=== PATIENT | male | born 1960 | race Caucasian/White ===

== ENCOUNTER → 2019-07-15 13:53 | Outpatient (CLI) | payer MEDICARE, SELFPAY ==
--- NOTE | 2019-07-15 | CA_ITS ---
APPROVED REPORT Exam: Exercise Treadmill Technologist: Kelsey Willson Ht: 6 ft 7 in Wt: 215 lbs BSA: 2.35 m2 HR: 75 bpm BP: 141/91 mmHg Indications: Chest pain Stress Test Details Test: Randal HR Resting HR: 93 bpm Max Heart Rate (APMHR): 161 bpm Max HR Achieved: 163 bpm Target HR (85% APMHR): 136 bpm % of APMHR: 101 Recovery HR: 104 bpm BP Resting BP: 141.0/91.0 mmHg Max BP: 190.0/98.0 mmHg Recovery BP: 150.0/90.0 mmHg ECG Clinical Exercise duration: 06:14 min Highest Stage Achieved: Exercise capacity: 7.0 METs Stress ECG Conclusion Resting ECG: Sinus rhythm Randal protocol completed. Patient exercised 06:14. Test stopped due to shortness of breath. Symptoms: Shortness of breath at peak exercise. Resolved in recovery. No chest pain. Arrhythmias/Ectopy: Occasional PVC. ST-T Changes: Less than 1.[address] depression. Conclusion: GXT only. Shortness of breath at peak exercise. Less than 1.[address] depression. Normal exercise treadmill stress test Electronically signed by : Felipe Meier, 07/15/2019 20:15:55
== END ==
PROVIDERS: PCP Family Medicine; Visit Provider Family Medicine
DX: R07.9 Chest pain, unspecified (principal)
CPT/HCPCS: 93017

== ENCOUNTER 2019-09-02 21:30 | Observation (INO) | payer MEDICARE, SELFPAY ==
--- NOTE | 2019-09-02 21:27 | ECG_ITS ---
APPROVED REPORT Exam: Resting ECG HR:66 bpm ECG Measurements Heart Rate 66 AXES PA 140 P 61 QRSd 102 QRS 30 QT 382 T 53 QTc 400 <Conclusion> Normal sinus rhythm Normal ECG Electronically signed by : Rolando Gould, 09/03/2019 14:04:29
[2019-09-02 21:31] VITALS: BP 158/98; PULSE 66; RESP 16; TEMP 36.4; O2SAT 97; BMI 23.6
--- NOTE | 2019-09-02 21:38 | XR_ITS ---
PROCEDURE: XR CHEST 2V CLINICAL HISTORY: chest pain COMPARISON: ABDPELW/WO CT ABD PELVIS W/WO CONTRAST from 09/10/2013 XR CHEST PORTABLE from 07/03/2019 FINDINGS: The cardiomediastinal silhouette and pulmonary vascularity are within normal limits. Hyperinflation with attenuation of the peripheral pulmonary vessels suggesting COPD. There are atelectatic or fibrotic changes in the right suprahilar region. Degenerative changes thoracic spine IMPRESSION: Possible COPD otherwise negative Dictated by: Bruce Pfeiffer MD 09/03/2019 08:34 Electronically signed by Bruce Pfeiffer MD in [place] 09/03/2019 08:34
[2019-09-02 21:55] LABS: Basophils % 0.8 % (0.1-2.0); Eosinophils # 0.3 K/mm3 (0.0-0.4); Eosinophils % 5.5 % (0.1-12.0); Hematocrit 44.3 % (42.0-52.0); Hemoglobin 14.1 g/dL (14.1-18.0); Lymphocytes # 1.2 K/mm3 (0.7-4.5); Lymphocytes % 23.1 % (10-50); Mean Corpuscular HGB Conc 31.9 g/dL (31.8-35.4); Mean Corpuscular Hemoglobin 29.5 pg (27.0-31.2); Mean Corpuscular Volume 92.5 fl (80-94); Mean Platelet Volume 7.1 fl (7.4-10.4); Monocytes # 0.4 K/mm3 (0.1-1.0); Monocytes % 7.2 % (1.7-9.3); Neutrophils # 3.2 K/mm3 (1.8-7.8); Neutrophils % 63.3 % (37.0-80.0); Platelet Count 292 K/mm3 (142-424); Red Blood Count 4.79 M/mm3 (4.60-6.20); Red Cell Distribution Width 12.9 % (11.5-17.5)
[2019-09-02 21:58] LABS: Chloride 102 mmol/L (98-107); Sodium 138 mmol/L (136-145)
[2019-09-02 22:01] LABS: Blood Urea Nitrogen 21 mg/dl (9-20); Creatinine Clearance Estimated 107 mL/min (50-200); Estimated Glomerular Filt Rate 76 ml/min (>60); GFR (African American) 93 ML/MIN (>60)
--- NOTE | 2019-09-02 22:01 | HMH.EDCP ---
ED Disposition Clinical Impression: Chest pain Qualifiers: Chest pain type: precordial pain Qualified Code(s): R07.2 - Precordial pain Disposition: Home, Self-Care Condition on Discharge: Good Referrals: Provider,Referral, [Primary Care Provider] - - Critical Care Critical Care Time: No Attestation: On 09/02/19, the high probability of a clinically significant, sudden or life threatening deterioration of the following system(s) required my full and direct attention, intervention and personal management. The time I documented below is in addition to time spent performing reported procedures but includes the following listed in this critical care notation. Medical Decision Making - Medical Records Medical records reviewed: Yes: I reviewed the patient's medical records. - [place] Inquiry Pt receiving controlled substance: No Vital Signs: 09/02/19 21:31 09/02/19 22:36 Temperature 97.6 F Temperature Source Oral Pulse Rate [Right Brachial] 66 56 L Respiratory Rate 16 18 Blood Pressure [Right Arm] 158/98 H 142/56 H Blood Pressure Mean [Right Arm] 118 84 Blood Pressure Source [Right Arm] Automatic Cuff Blood Pressure Position [Right Arm] Sitting 02 Sat by Pulse Oximetry 97 97 Oxygen Delivery Method Room Air Room Air - Lab Data Lab results reviewed: Yes: I reviewed the patient's lab results. Lab Results 09/02/19 21:45: WBC 5.0, RBC 4.79, Hgb 14.1, Hct 44.3, MCV 92.5, MCH 29.5, MCHC 31.9, RDW 12.9, Plt Count 292, MPV 7.1 L, Neut % (Auto) 63.3, Lymph % (Auto) 23.1, [place] % (Auto) 7.2, Eos % (Auto) 5.5, Baso % (Auto) 0.8, Neut # (Auto) 3.2, Lymph # (Auto) 1.2, [place] # (Auto) 0.4, Eos # (Auto) 0.3, Baso # (Auto) 0.0 09/02/19 21:45: Sodium 138, Potassium 4.0, Chloride 102, Carbon Dioxide 29, Anion Gap 11.0, BUN 21 H, Creatinine 1.00, Estimated Creat Clear 107, Estimated GFR 76, Est GFR ( Amer) 93, Glucose 103 H, Calcium 9.7, Troponin I < 0.01 09/02/19 21:45: Plasma/Serum Alcohol < 10 Result diagrams: 09/02/19 21:45 09/02/19 21:45 Orders (Tests/Meds): ED MEDICATIONS Discontinued Medications Generic Name Dose Route Start Last Admin Trade Name Freeman PRN Reason Stop Dose Admin Nitroglycerin 1 gm 09/02/19 22:41 Nitroglycerin 1 Inch Oint Udp TD 09/02/19 22:42 ONCE ONE ORDERS Category Date Time Status XR chest 2V Stat Exams 09/02/19 21:38 Taken Troponin I Q3H Lab 09/03/19 00:45 Ordered Troponin I Q3H Lab 09/03/19 03:45 Ordered - Radiology Data #1 Image(s): Chest Image Reviewed: Yes I reviewed the patient's radiology image Preliminary Findings: Normal/NAD - ECG Data Tracing #1 Normal Sinus Rhythm: Yes Ischemic changes: non-specific ST-T wave changes - Physician Consults Physician Consulted: jenny Reason -: Admission Chest Pain HPI - General Chief Complaint: Chest Pain Stated Complaint: Chest pain Time Seen by Provider: 09/02/19 21:40 Mode of Arrival: EMS Source of Information: Patient, EMS, Medical Record Limitations: No Limitations Description of Symptoms (Recalled from ER Triage Doc. by RN): Patient brought in by EMS with report of chest pain and SOB. Patient says he hit him all of the sudden around 1700 tonight and called EMS. Patient has one nitro and 4 aspirin in route. Patient is pain free on arrival at our facility. - History of Present Illness HPI narrative: acute onset of chest pain while at rest - and was relieved by ntg per ems - pt with prev gxt which was neg MD complaint: chest pain indicative of cardiac Onset (ago): hour(s) Duration: now resolved Activity at onset: during rest Pain location: left chest Severity: moderate Quality: sharp Relieving factors: nitroglycerin Risk Factors for CAD: Hypertension, Hypercholesterolemia, Family Hx of CAD, Smoking Treatments prior to or on arrival for Cardiac Chest Pain: none - IDALIA Score for Non-Stemi Age of Patient: 50-59 years old Heart Rate: 50-69 bpm Systolic Blood Pressure: 1
[2019-09-02 22:02] LABS: Calcium 9.7 mg/dl (8.4-10.2); Carbon Dioxide 29 mmol/L (22.0-30.0); Glucose 103 mg/dl (74-100)
[2019-09-02 22:07] LABS: Ethyl Alcohol < 10 mg/dl (0-10)
[2019-09-02 22:25] LABS: Troponin I < 0.01 ng/ml (0.00-0.034)
[2019-09-02 22:36] VITALS: BP 142/56; PULSE 56; RESP 18; O2SAT 97
--- NOTE | 2019-09-02 22:41 | PC.NURSE ---
spoke with dr alvarado who wants to admit pt
--- NOTE | 2019-09-02 22:47 | PC.NURSE ---
Updated Dano, patient uncle about patient being admitted.
[2019-09-02 22:51] VITALS: BMI 26.2
[2019-09-02 23:11] VITALS: BP 138/105; PULSE 80; RESP 17; TEMP 36.4; O2SAT 97
--- NOTE | 2019-09-02 23:23 | PC.NURSE ---
pt arrived to floor via wheelchair from ED
[2019-09-02 23:30] VITALS: O2SAT 97
--- NOTE | 2019-09-02 23:45 | PC.NURSE ---
Lawson Sanchez, Student Nurse, will be providing care to pt under my supervision.
[2019-09-02 23:50] VITALS: BP 166/89; PULSE 65; RESP 18; TEMP 36.7; O2SAT 99
[2019-09-03 00:42] VITALS: PULSE 60
--- NOTE | 2019-09-03 00:57 | PC.NURSE ---
Education provided to pt on POC, NPO status, Medications, Medicare OBS. Pt states family may possible be able to bring medications in AM. Pt spoke of Dano Huynh. Pt States he does not know the names of medications that he is on. Pt took shower before bed. NPO for cardiac consult in AM. Denies any pain or discomfort at this time. VSS. WIll continue to monitor.
[2019-09-03 01:09] LABS: Troponin I < 0.01 ng/ml (0.00-0.034)
[2019-09-03 04:00] VITALS: BP 130/71; PULSE 50; PULSE 55; RESP 18; TEMP 36.6; O2SAT 98
[2019-09-03 04:51] LABS: Troponin I < 0.01 ng/ml (0.00-0.034)
[2019-09-03 05:31] LABS: Basophils % 0.6 % (0.1-2.0); Eosinophils # 0.2 K/mm3 (0.0-0.4); Eosinophils % 2.9 % (0.1-12.0); Hematocrit 42.8 % (42.0-52.0); Hemoglobin 13.8 g/dL (14.1-18.0); Lymphocytes # 1.1 K/mm3 (0.7-4.5); Lymphocytes % 19.6 % (10-50); Mean Corpuscular HGB Conc 32.1 g/dL (31.8-35.4); Mean Corpuscular Hemoglobin 29.8 pg (27.0-31.2); Mean Corpuscular Volume 92.6 fl (80-94); Mean Platelet Volume 7.4 fl (7.4-10.4); Monocytes # 0.3 K/mm3 (0.1-1.0); Monocytes % 5.6 % (1.7-9.3); Neutrophils # 4.1 K/mm3 (1.8-7.8); Neutrophils % 71.3 % (37.0-80.0); Platelet Count 277 K/mm3 (142-424); Red Blood Count 4.63 M/mm3 (4.60-6.20); Red Cell Distribution Width 13.1 % (11.5-17.5); White Blood Count 5.8 K/mm3 (4.8-10.8)
--- NOTE | 2019-09-03 05:41 | PC.NURSE ---
PATIENT HAS NOT DISPLAYED ANY SIGNIFICANT CHANGES SINCE ADMISSION, VSS, PT REMAINS NPO, HAS SHOWERED, AND CHANGED CLOTHES IN PREPARATION FOR CARDIAC CONSULT, PT AMBULATES INDEPENDENTLY TO RR, NO C/O PAIN, SOB, DISTRESS WHEN AMBULATING, PATIENT HAD TROPONIN*2 WNL, TELE NSR,
[2019-09-03 05:42] LABS: Anion Gap 12.9 mEq/L (5-15); Blood Urea Nitrogen 19 mg/dl (9-20); Calcium 9.8 mg/dl (8.4-10.2); Carbon Dioxide 25 mmol/L (22.0-30.0); Chloride 103 mmol/L (98-107); Chol/HDL Ratio 3.5 (1-3.5); Cholesterol 155 mg/dl (140-200); Creatinine Clearance Estimated 132 mL/min (50-200); Estimated Glomerular Filt Rate 86 ml/min (>60); GFR (African American) 105 ML/MIN (>60); Glucose 103 mg/dl (74-100); HDL Cholesterol 44 mg/dl (40-60); Magnesium 1.7 mg/dl (1.6-2.3); Potassium 3.9 mmoL/L (3.5-5.1); Sodium 137 mmol/L (136-145); Triglycerides 97 mg/dl (30-150); VLDL Cholesterol 19 mg/dL (0-40)
[2019-09-03 05:45] LABS: Direct LDL Cholesterol 84.12 mg/dL (100-129)
--- NOTE | 2019-09-03 07:24 | P.CONPHA_ITS ---
[facility] Pharmacy VTE Monitoring - Patient Demographics Admission date: 09/02/19 Report Date: 09/03/19 Time: 07:24 Allergies/Adverse Reactions: Patient Allergies No Known Allergies Allergy (Verified 09/02/19 21:40) Height: 2.01 m Weight: 105.687 kg Patient Problems: Current Active Problems Chest pain (Acute) - VTE Risk Labs: VTE Related Lab Results Hgb 13.8 g/dL (14.1-18.0) L 09/03/19 03:55 Hct 42.8 % (42.0-52.0) 09/03/19 03:55 Plt Count 277 K/mm3 (142-424) 09/03/19 03:55 BUN 19 mg/dl (9-20) 09/03/19 03:55 Creatinine 0.90 mg/dl (0.66-1.25) 09/03/19 03:55 Estimated Creat Clear 132 mL/min (50-200) 09/03/19 03:55 Was VTE Risk Assessment Performed: No VTE Score: 1 VTE Risk Level: Low Risk - Prophylaxis VTE Prophylaxis Ordered?: Yes Types of VTE Prophylaxis: TEDS Knee High Location of Applied Device: Bilateral Lower Extremeties - VTE Diagnosis Confirmed Treatment or plan recommended: Continue Current Treatment
[2019-09-03 08:00] VITALS: BP 151/91; PULSE 69; RESP 18; TEMP 36.5; O2SAT 98
--- NOTE | 2019-09-03 08:00 | CA_ITS ---
APPROVED REPORT EXAM: Comprehensive 2D, Doppler, and color-flow Echocardiogram Supervisor Nuclear Medicine: Nevin Hoffman CRT Ht: 6 ft 7 in Wt: 210lbs BSA: 2.33 BP: 142/56 mmHg Indications: Chest Pain, Shortness of Breath, Hyperlipidemia, Hypertension/HDD, smoker 2D Dimensions LVOT 2.02 cm (M/F) 1.5-2.5 M-Mode Dimensions RVDd 3.39 cm (0.9-2.6) LVDd 6.04 cm (3.5-5.7) LVDs 3.64 cm (3.5-5.7) IVSd 1.29 cm (0.6-1.1) PWd 0.96 cm (0.6-1.1) EF (Teich) 69.40% FS 39.70% EDV (Teich) 182.80 mL ESV (Teich) 55.90 mL LV Diastology E/A Ratio 1.10 Mitral Valve MV A Velocity 54.00 (40-130 cm/s) Left Ventricle Left atrium is mildly enlarged, left ventricle is normal size, mild concentric left ventricular hypertrophy, visually estimated ejection fraction 55% with no regional wall motion abnormality, grade 1 diastolic dysfunction seen without tissue Doppler evidence of raise left atrial pressure. Right Ventricle Right atrium is mildly enlarged, right ventricle is mildly dilated with normal contractility. Aortic Valve Aortic valve is minimally thickened and fibrosed, there is no aortic stenosis or aortic insufficiency. Mitral Valve Mitral valve leaflets are minimally thickened, there is mild mitral regurgitation. Tricuspid Valve Tricuspid valve is grossly normal, there is mild tricuspid regurgitation, tricuspid regurgitation jet velocity is inadequate for calculation of the right ventricular systolic pressure. Pulmonic Valve Pulmonic valve is poorly visualized. Great Vessels Aortic root is normal size. Pericardium No significant pericardial effusion noted. Conclusion 1. Mild biatrial enlargement, normal left ventricular size, mild concentric left ventricular hypertrophy, visually estimated ejection fraction 55% with no regional wall motion abnormality, grade 1 diastolic dysfunction seen without tissue Doppler evidence of raise left atrial pressure. 2. Mildly enlarged right ventricle with normal contractility. 3. Mild mitral and tricuspid regurgitation. 4. No significant pericardial effusion noted. Electronically signed by : Felipe Meier, 09/03/2019 17:26:39
--- NOTE | 2019-09-03 08:02 | HMH.CNCARD ---
History of Present Illness Consult date: 09/03/19 Requesting physician: Lawson Samuels Consult reason: chest pain Chief complaint: chest pain Additional Medical History:: 1. Hypertension 2. Hyperlipidemia 3. Arthritis 4. Mental deficit, mild 5. Remote history of abnormal stress test in 2010. Unsure if patient had a further work-up. A. Normal exercise stress test 06/2019 without nuclear imaging History of present illness: 59-year-old white male with long set of chest discomfort described as substernal without radiation with some mild shortness of breath while at rest last evening. Patient contacted EMS for transportation to the hospital for further evaluation. In route he was given baby aspirin and 1 sublingual nitroglycerin with subsequent resolution of symptoms by the time he got to the ER. His EKG is sinus rhythm and unremarkable. His troponins have returned normal overnight. Patient was noted to be hypertensive on admission. Patient has remained symptom-free overnight and is anxious to be discharged home. Preliminary echocardiogram this morning shows ejection fraction greater than 55% with some evidence of moderate mitral regurgitation. [facility] History Medical History: Denies:: Cancer, Diabetes Mellitus Type 1, Diabetes Mellitus Type 2, Internal Pacemaker, MRSA *Have you ever received a pneumonia vaccine?: No *Have you received a flu vaccine this season?: No Other Medical History: Reports: Arthritis, Sinus Problems Other Surgeries: No: Pacemaker Amputation: No Fractures: Yes (RIGHT ANKLE) - *Social History Educational Level: Completed High School Smoking Status: Former smoker Tobacco Type: cigarettes # Packs/Day (cigarettes): 2 #Yrs smoked (if former smoker): 12 Alcohol Intake: current Alcohol Intake Frequency:: holidays/special occasions only *Occupational Status:: employed Housing: house Household Members: significant other, friend(s) *Travel in the last 8 weeks: None Family Hx:: Heart Attack Meds Home Medications Medication Instructions Recorded Confirmed Type Benazepril/Hydrochlorothiazide 1 each PO DAILY 09/02/19 09/02/19 History [Benazepril-Hctz 20-12.5 mg Tab] Omeprazole 20 mg PO DAILY 09/02/19 09/02/19 History Sertraline HCl [Zoloft] 100 mg PO DAILY 09/02/19 09/02/19 History Simvastatin 40 mg PO HS 09/02/19 09/03/19 History Sulindac 200 mg PO BID 09/02/19 09/02/19 History clonazePAM [Clonazepam] 0.5 mg PO TID 09/02/19 09/02/19 History Fluticasone Propionate [Flonase 1 spray NS DAILY 09/03/19 09/03/19 History Allergy Relief NS] Allergies Allergy/AdvReac Type Severity Reaction Status Date / Time No Known Allergies Allergy Verified 09/02/19 21:40 Review of Systems - Review of Systems Review of systems:: pertinent systems reviewed and negative unless documented below - *Cardiovascular Reports chest pain, Denies shortness of breath with activity - *Respiratory Denies cough, Denies shortness of breath with activity - *Gastrointestinal Denies heartburn, Denies nausea, Denies vomiting - *Genitourinary Denies blood in urine - *Musculoskeletal Reports joint pain - *Neurologic Denies abnormal hearing, Denies localized weakness, Denies seizure-like activity Exam Vital signs and Labs for Last 24 Hours: Temp Pulse Resp BP Pulse Ox 97.9 F 55 L 18 130/71 98 09/03/19 04:00 09/03/19 04:00 09/03/19 04:00 09/03/19 04:00 09/03/19 04:00 Laboratory Results - last 24 hr 09/02/19 21:45: WBC 5.0, RBC 4.79, Hgb 14.1, Hct 44.3, MCV 92.5, MCH 29.5, MCHC 31.9, RDW 12.9, Plt Count 292, MPV 7.1 L, Neut % (Auto) 63.3, Lymph % (Auto) 23.1, [place] % (Auto) 7.2, Eos % (Auto) 5.5, Baso % (Auto) 0.8, Neut # (Auto) 3.2, Lymph # (Auto) 1.2, [place] # (Auto) 0.4, Eos # (Auto) 0.3, Baso # (Auto) 0.0 09/02/19 21:45: Sodium 138, Potassium 4.0, Chloride 102, Carbon Dioxide 29, Anion Gap 11.0, BUN 21 H, Creatinine 1.00, Estimated Creat Clear 107, Estimated GFR 76, Est GFR ( Amer) 93
--- NOTE | 2019-09-03 08:40 | HMH.PHAINT ---
MEDICATION RECONCILIATION COMPLETED ON PATIENT USING EXTERNAL FILL HISTORY FROM PHARMACY AND LIST FROM [facility] OFFICE. -SOCORRO COOKD
[2019-09-03 09:44] VITALS: PULSE 69; RESP 18; O2SAT 98
--- NOTE | 2019-09-03 09:45 | HMH.HPDC ---
General - General Admission date:: 09/02/19 Discharge date: 09/03/19 *Admission Date: 09/02/19 *Chief complaint: Chest pain *History of present illness: Mr Huynh is a 59-year-old white male with a history of hypertension, hyperlipidemia, and cognitive deficits who began having left anterior severe chest pain last p.m. at rest. The pain was without radiation and with some mild shortness of breath. Patient contacted EMS who transported him to the hospital for further evaluation. In route he was given aspirin and was sublingual nitroglycerin with resolution of symptoms by the time he got to the emergency room. With evaluation in the emergency room EKG revealed a sinus rhythm and was unremarkable. Troponins were negative. He was hypertensive on admission. He was admitted for further evaluation and treatment with a cardiology consult. This a.m. at time of exam patient remains pain-free. He denies shortness of breath. He is hungry and would like breakfast. He has had his echocardiogram. His troponins have returned normal overnight. Patient was noted to be hypertensive on admission. Patient has remained symptom-free overnight and is anxious to be discharged home. Preliminary echocardiogram this morning shows ejection fraction greater than 55% with some evidence of moderate mitral regurgitation. [facility] History Medical History: Reports:: Gastroesophageal Reflux Disease(GERD) Denies:: Cancer, Diabetes Mellitus Type 1, Diabetes Mellitus Type 2, Internal Pacemaker, Lung Disease, MRSA *Have you ever received a pneumonia vaccine?: No *Have you received a flu vaccine this season?: No Other Medical History: Reports: Arthritis, Sinus Problems Comment:: Mild cognitive deficit Other Surgeries: No: Pacemaker Amputation: No Fractures: Yes (RIGHT ANKLE) - *Social History Educational Level: Completed High School Smoking Status: Former smoker Tobacco Type: cigarettes # Packs/Day (cigarettes): 2 #Yrs smoked (if former smoker): 12 Alcohol Intake: current Alcohol Intake Frequency:: holidays/special occasions only *Occupational Status:: employed Housing: house Household Members: significant other, friend(s) *Travel in the last 8 weeks: None Family Hx:: Heart Attack Review of Systems - Constitutional Denies chills, Denies headache(s), Denies weakness - Eyes Denies change in vision - ENT Denies ear pain, Denies sinus pain, Denies sore throat, Denies dizziness - *Cardiovascular Reports chest pain, Reports chest pain at rest, Denies shortness of breath, Denies irregular heart rhythm, Denies leg swelling, Denies rapid, pounding, or irregular heartbeat, Denies radiating jaw, neck or arm pain - *Respiratory Reports shortness of breath (Slight), Denies chest congestion, Denies cough - *Gastrointestinal Denies abdominal pain, Denies constipation, Denies nausea, Denies vomiting - *Genitourinary Denies difficulty urinating - *Musculoskeletal Reports joint pain (All joints hurt at times) - *Neurologic Denies abnormal hearing, Denies abnormal speech, Denies confusion, Denies localized weakness, Denies seizure-like activity Comments: Some memory deficit Exam Vital signs and Labs for Last 24 Hours: Temp Pulse Resp BP Pulse Ox 97.7 F 69 18 151/91 H 98 09/03/19 08:00 09/03/19 08:00 09/03/19 08:00 09/03/19 08:00 09/03/19 08:00 Laboratory Results - last 24 hr 09/02/19 21:45: WBC 5.0, RBC 4.79, Hgb 14.1, Hct 44.3, MCV 92.5, MCH 29.5, MCHC 31.9, RDW 12.9, Plt Count 292, MPV 7.1 L, Neut % (Auto) 63.3, Lymph % (Auto) 23.1, [place] % (Auto) 7.2, Eos % (Auto) 5.5, Baso % (Auto) 0.8, Neut # (Auto) 3.2, Lymph # (Auto) 1.2, [place] # (Auto) 0.4, Eos # (Auto) 0.3, Baso # (Auto) 0.0 09/02/19 21:45: Sodium 138, Potassium 4.0, Chloride 102, Carbon Dioxide 29, Anion Gap 11.0, BUN 21 H, Creatinine 1.00, Estimated Creat Clear 107, Estimated GFR 76, Est GFR ( Amer) 93, Glucose 103 H, Calcium 9.7, Troponin I < 0.01 09/02/19 21:45: Plasm
[2019-09-03 12:00] VITALS: BP 132/75; PULSE 94; RESP 20; TEMP 37.1; O2SAT 93
--- NOTE | 2019-09-03 13:17 | HMH.PHAINT ---
DISCHARGE COUNSELING COMPLETE. SPOKE WITH THE PATIENT ABOUT THE ADDITION OF AMLODIPINE, INCREASE ON OMEPRAZOLE FROM QD TO BID, AND THE STOPPAGE OF THE SULINDAC. PATIENT ENDORSED NO QUESTIONS AT THIS TIME.
== END 2019-09-03 16:54 | disposition home or self-care (01) ==
LOC: ER 21:53 → 2ND 22:51
PROVIDERS: Admitting Provider Family Medicine; Emergency Provider Emergency Medicine; Visit Provider Family Medicine
DX: R07.2 Precordial pain (principal); I10 Essential (primary) hypertension; E78.5 Hyperlipidemia, unspecified; Z72.0 Tobacco use; Z82.49 Family history of ischemic heart disease and other diseases of the circulatory system; Z79.899 Other long term (current) drug therapy; Z72.89 Other problems related to lifestyle; K21.9 Gastro-esophageal reflux disease without esophagitis; M19.90 Unspecified osteoarthritis, unspecified site; Z87.891 Personal history of nicotine dependence
CPT/HCPCS: 36415; 71046; 80048; 80061; 83735; 84484; 85025; 93005; 93306; 99284; G0378

== ENCOUNTER 2021-04-05 10:24 | Emergency (ER) | payer MEDICARE, SELFPAY ==
[2021-04-05 10:25] VITALS: BP 161/93; PULSE 104; RESP 18; TEMP 36.7; O2SAT 95; BMI 28.1
--- NOTE | 2021-04-05 10:27 | CT_ITS ---
PROCEDURE: CT THORACIC SPINE WO CON CLINICAL HISTORY: trauma COMPARISON: No exams were available for comparison TECHNIQUE: Axial images obtained with sagittal and coronal reformats. All CT scans at the facility use one or more dose reduction, viz: automated exposure control, ma/kV adjustment per patient size (including targeted exams where dose is matched to indication, i.e. head), or iterative reconstruction technique. FINDINGS: Normal alignment. No acute fracture or dislocation. There is multilevel thoracic spondylosis with anterior osteophytes. No obvious paraspinal hematoma IMPRESSION: No acute finding Dictated by: Bruce Pfeiffer MD 04/05/2021 11:33 Bruce Pfeiffer MD in [place] 04/05/2021 11:33
--- NOTE | 2021-04-05 10:27 | CT_ITS ---
PROCEDURE: CT CERVICAL SPINE WO CON CLINICAL INDICATION: trauma COMPARISON: No exams were available for comparison TECHNIQUE: Axial images obtained with sagittal and coronal reformats. All CT scans at the facility use one or more dose reduction, viz: automated exposure control, ma/kV adjustment per patient size (including targeted exams where dose is matched to indication, i.e. head), or iterative reconstruction technique. Axial spiral CT scanning performed of the cervical spine beginning at the base of the skull and continuing to the upper T-spine. 3-D multiplanar reconstruction with 3-D manipulation of volumetric data set in image rendering was completed by the radiologist and/or technologist with the supervision of the radiologist on independent workstation. FINDINGS: There is straightening of the cervical lordosis. No acute fracture or dislocation is evident. No lytic or blastic change. Multilevel cervical spondylosis is present with facet and uncovertebral hypertrophy. C2-C3: Left-sided foraminal narrowing from facet hypertrophy. C3-C4: Degenerative disc disease with endplate hypertrophic change and severe right-sided foraminal narrowing from uncovertebral and endplate osteophytes. C4-C5: Degenerative disc disease with small broad-based disc osteophyte complex centrally and bilateral foraminal narrowing. C5-C6: Severe bilateral foraminal narrowing from endplate and uncovertebral hypertrophy with canal stenosis. C6-C7: Severe bilateral foraminal narrowing from endplate and uncovertebral hypertrophy with borderline canal stenosis. C7-T1: Unremarkable. Lung apices are clear. There are few scattered small cervical lymph nodes. IMPRESSION: 1. No acute fracture. 2. Multilevel cervical spondylosis with severe foraminal narrowing and canal stenosis. Please see above for detailed description at each level. 3. Slight reversal cervical lordosis which could be due to patient positioning or muscle spasm Dictated by: Bruce Pfeiffer MD 04/05/2021 11:29 Bruce Pfeiffer MD in [facility] 04/05/2021 11:29
--- NOTE | 2021-04-05 10:27 | XR_ITS ---
PROCEDURE: XR HAND LT MIN 3V CLINICAL INDICATION: trauma COMPARISON: No exams were available for comparison FINDINGS: No acute fracture or dislocation. Extra ossicles are present at the ulnar styloid process region and could be related to old injury. IMPRESSION: No acute findings. Dictated by: Bruce Pfeiffer MD 04/05/2021 11:23 Bruce Pfeiffer MD in [facility] 04/05/2021 11:23
--- NOTE | 2021-04-05 10:27 | CT_ITS ---
PROCEDURE: CT HEAD/BRAIN WO CON CLINICAL INDICATION: trauma COMPARISON: No exams were available for comparison TECHNIQUE: Axial images obtained. All CT scans at the facility use one or more dose reduction, viz: automated exposure control, ma/kV adjustment per patient size (including targeted exams where dose is matched to indication, i.e. head), or iterative reconstruction technique. FINDINGS: No midline shift, mass effect, intracranial hemorrhage, hydrocephalus, or extra-axial fluid collection is evident. Mild soft tissue swelling of the scalp at the vertex region on the left. The calvarium has an unremarkable appearance. No mastoid effusion. No sinus air-fluid level. IMPRESSION: No acute intracranial finding Dictated by: Bruce Pfeiffer MD 04/05/2021 11:25 Bruce Pfeiffer MD in [facility] 04/05/2021 11:25
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
[2021-04-05 12:20] VITALS: BP 153/99; PULSE 82; RESP 18; TEMP 36.7; O2SAT 94
== END 2021-04-05 12:21 | disposition home or self-care (01) ==
PROVIDERS: Emergency Provider Emergency Medicine; PCP Family Medicine
DX: S01.01XA Laceration without foreign body of scalp, initial encounter (principal); W22.8XXA Striking against or struck by other objects, initial encounter; Y92.89 Other specified places as the place of occurrence of the external cause; K21.9 Gastro-esophageal reflux disease without esophagitis; Z87.891 Personal history of nicotine dependence
CPT/HCPCS: 12002; 70450; 72125; 72128; 73130; 99282

== ENCOUNTER → 2021-05-05 11:05 | Outpatient (CLI) | payer MEDICARE, SELFPAY ==
[2021-05-05 11:33] LABS: Adenovirus,PCR Not Detected (NotDetected); Bordetella Pertussis Not Detected (NotDetected); Chlamydophila Pneumoniae, PCR Not Detected (NotDetected); Coronavirus 19, PCR Not Detected (NotDetected); Coronavirus 229E Not Detected (NotDetected); Coronavirus NL63 Not Detected (NotDetected); Coronavirus OC43 Not Detected (NotDetected); Coronovirus HKU1,PCR Not Detected (NotDetected); Human Metapneumovirus Not Detected (NotDetected); Influenza A, PCR Not Detected (NotDetected); Influenza AH1, 2009 Not Detected (NotDetected); Influenza AH1, PCR Not Detected (NotDetected); Influenza AH3,PCR Not Detected (NotDetected); Influenza B, PCR Not Detected (NotDetected); Mycoplasma Pneumoniae, PCR Not Detected (NotDetected); Parainfluenza 1, PCR Not Detected (NotDetected); Parainfluenza 2, PCR Not Detected (NotDetected); Parainfluenza 3, PCR Not Detected (NotDetected); Parainfluenza 4, PCR Not Detected (NotDetected); Respiratory Syncytial Virus Not Detected (NotDetected); Rhinovirus/Enterovirus Not Detected (NotDetected)
[2021-05-05 12:22] LABS: Basophils % 0.4 % (0.1-2.0); Eosinophils # 0.1 K/mm3 (0.0-0.4); Eosinophils % 1.7 % (0.1-12.0); Hematocrit 43.2 % (42.0-52.0); Hemoglobin 14.7 g/dL (14.1-18.0); Lymphocytes # 0.5 K/mm3 (0.7-4.5); Lymphocytes % 10.3 % (10-50); Mean Corpuscular Hemoglobin 30.6 pg (27.0-31.2); Mean Platelet Volume 7.6 fl (7.4-10.4); Monocytes # 0.3 K/mm3 (0.1-1.0); Monocytes % 6.4 % (1.7-9.3); Neutrophils # 4.2 K/mm3 (1.8-7.8); Neutrophils % 81.3 % (37.0-80.0); Platelet Count 290 K/mm3 (142-424); Red Cell Distribution Width 13.3 % (11.5-17.5); White Blood Count 5.1 K/mm3 (4.8-10.8)
== END ==
PROVIDERS: PCP Family Medicine; Visit Provider Family Medicine
DX: Z20.822 Contact with and (suspected) exposure to COVID-19 (principal)
CPT/HCPCS: 36415; 85025; 87581; 87632; 87798; C9803; U0003; U0005

== ENCOUNTER → 2021-06-30 15:28 | Outpatient (CLI) | payer MEDICARE, SELFPAY ==
--- NOTE | 2021-06-30 15:37 | XR_ITS ---
FINAL REPORT CLINICAL HISTORY: LOW BACK PAIN, OLD BACK INJURY DUE TO FALL FINDINGS: 5 views of the lumbar spine were obtained. There is no evidence of fracture or dislocation. The vertebral alignment is normal. There are moderate and severe degenerative changes with multilevel osteophytes. There is facet arthropathy. No paraspinous soft tissue abnormalities identified. IMPRESSION: Moderate and severe degenerative changes. Reviewed, Interpreted and Dictated by Kareem Cha III, MD Transcribed by Kwame Bowie Authenticated by Kareem Cha III, MD on 07/01/2021 07:22:57 AM [facility]
== END ==
PROVIDERS: PCP Nurse Practitioner; Visit Provider Nurse Practitioner
DX: M54.50 Low back pain, unspecified (principal)
CPT/HCPCS: 72110

== ENCOUNTER → 2021-11-03 11:23 | Outpatient (CLI) | payer MEDICARE, SELFPAY ==
--- NOTE | 2021-11-03 11:31 | XR_ITS ---
FINAL REPORT CLINICAL HISTORY: LEFT SIDED CHEST WALL PAIN COMPARISON: September 02, 2019 FINDINGS: Two views of the chest were obtained. The heart size and pulmonary vascularity are within normal limits. The mediastinum is normal. There is mild left lung base atelectasis. There is no pneumothorax. There is moderate degenerative change of the thoracic spine. IMPRESSION: Mild left lung base atelectasis. Reviewed, Interpreted and Dictated by Kareem Cha III, MD Transcribed by Zonia Jordan Authenticated and [facility]
--- NOTE | 2021-11-03 12:01 | ECG_ITS ---
APPROVED REPORT Exam: Resting ECG HR:85 bpm ECG Measurements Heart Rate 85 AXES WY 145 P 60 QRSd 121 QRS 8 QT 349 T 49 QTc 391 Conclusion SINUS RHYTHM Normal ecg UNCONFIRMED REPORT Electronically signed by : Abelardo Tsai MD 11/05/2021 17:52:56
== END ==
PROVIDERS: PCP Family Medicine; Visit Provider Nurse Practitioner
DX: R07.89 Other chest pain (principal)
CPT/HCPCS: 71046; 93005

== ENCOUNTER → 2021-12-08 06:47 | Outpatient (CLI) | payer MEDICARE, SELFPAY ==
[2021-12-07 19:11] LABS: Alanine Aminotransferase 24 U/L (12-78); Albumin Level 4.1 g/dl (3.5-5.0); Albumin/Globulin Ratio 1.2 (1.1-1.8); Alkaline Phosphatase 52 U/L (38-126); Anion Gap 9.9 mEq/L (5-15); Aspartate Amino Transferase 31 U/L (17-59); Bilirubin,Total 0.4 mg/dl (0.2-1.3); Blood Urea Nitrogen 25 mg/dl (9-20); Calcium 9.8 mg/dl (8.4-10.2); Carbon Dioxide 32 mmol/L (22.0-30.0); Chloride 102 mmol/L (98-107); Estimated Glomerular Filt Rate 56 ml/min (>60); GFR (African American) 68 ML/MIN (>60); Globulin 3.3 g/dL (1.3-3.2); Glucose 113 mg/dl (74-100); Potassium 4.9 mmoL/L (3.5-5.1); Prostate Specific Ag Screen 1.4 ng/ml (0.0-4.0); Sodium 139 mmol/L (136-145); Thyroid Stimulating Hormone 1.79 uIU/mL (0.465-4.68); Total Protein,Serum 7.4 g/dl (6.3-8.2)
== END ==
PROVIDERS: PCP Family Medicine; Visit Provider Family Medicine
DX: I10 Essential (primary) hypertension (principal); F32.9 Major depressive disorder, single episode, unspecified; N52.9 Male erectile dysfunction, unspecified; Z12.5 Encounter for screening for malignant neoplasm of prostate
CPT/HCPCS: 80053; 84443; G0103

== ENCOUNTER 2021-12-11 17:58 | Emergency (ER) | payer MEDICARE, SELFPAY ==
[2021-12-11 17:54] VITALS: BP 151/89; PULSE 93; RESP 18; TEMP 36.8; O2SAT 97; BMI 23.6
--- NOTE | 2021-12-11 17:56 | CT_ITS ---
PROCEDURE INFORMATION: Exam: CT Abdomen And Pelvis With Contrast Exam date and time: 12/11/2021 6:50 PM Age: 61 years old Clinical indication: Abdominal pain TECHNIQUE: Imaging protocol: Computed tomography of the abdomen and pelvis with contrast. Radiation optimization: All CT scans at this facility use at least one of these dose optimization techniques: automated exposure control; mA and/or kV adjustment per patient size (includes targeted exams where dose is matched to clinical indication); or iterative reconstruction. Contrast material: ISOVUE; Contrast volume: 75 ml; Contrast route: IV; COMPARISON: CT THORACIC SPINE WO CON 04/05/2021 11:00 AM FINDINGS: Lungs: Calcified granuloma within the right middle lobe. Diaphragm: Small-sized hiatal hernia. Liver: Simple cyst within the left hepatic lobe. Hepatic calcification, compatible with prior granulomatous disease. Gallbladder and bile ducts: Normal. Pancreas: Normal. Spleen: Splenic calcifications, compatible with prior granulomatous disease. Adrenal glands: Normal. No mass. Kidneys and ureters: Bilateral simple renal cysts, for which no further evaluation necessary. Stomach and bowel: Normal. Appendix: Appendix normal. Intraperitoneal space: Unremarkable. No free air. No significant fluid collection. Vasculature: Phleboliths within the pelvis. Lymph nodes: Calcified right hilar lymph nodes, compatible with prior granulomatous disease. Urinary bladder: Unremarkable as visualized. Reproductive: Unremarkable as visualized. Bones/joints: Degenerative changes of the hips, right worse than left, with joint space narrowing and osteophyte formation. Multilevel thoracolumbar spine degenerative disc space narrowing and osteophyte formation. Soft tissues: Small fat containing left inguinal hernia. Small fat containing umbilical hernia. IMPRESSION: 1. No acute abdominal or pelvic abnormality. 2. Other (less critical/noncritical/incidental) findings as above; please refer to the body of report for further details. COMMENTS: Consistent with the [employer]'s Incidental Findings Committee white paper (J [employer] Radiol 2018): Any incidental renal lesion less than 1 cm or classified as too small to characterize, or any incidental cystic renal lesion characterized as simple-appearing, is likely benign. No follow-up imaging is recommended for these lesions per consensus recommendations based on imaging criteria.
--- NOTE | 2021-12-11 17:58 | HMH.EDGENADL ---
ED Disposition Clinical Impression: Left inguinal hernia Abdominal pain Qualifiers: Abdominal location: lower abdomen, unspecified Qualified Code(s): R10.30 - Lower abdominal pain, unspecified Disposition: Home, Self-Care Condition on Discharge: Good Instructions: DI for Acute Abdominal Pain, DI for Groin Hernia Additional Instructions: You have been evaluated for abdominal pain. Work-up today shows that you have a small left-sided inguinal hernia. It is possible that you had a small kidney stone that passed. There are no obstructing kidney stones seen today. Please take Tylenol or Motrin for aches and pains. Bentyl for abdominal cramps. Follow-up with your primary care doctor in 1 to 2 days for symptom recheck. Return to the emergency department at once for any new or worsening symptoms, recurrence of pain, fever, vomiting, other concerns. Referrals: Lawson Samuels MD [Primary Care Provider] - Time of Disposition: 20:07 - Critical Care Critical Care Time: No Attestation: On , the high probability of a clinically significant, sudden or life threatening deterioration of the following system(s) required my full and direct attention, intervention and personal management. The time I documented below is in addition to time spent performing reported procedures but includes the following listed in this critical care notation. Medical Decision Making - Medical Records Medical records reviewed: Yes: I reviewed the patient's medical records. - Bentley Inquiry Pt receiving controlled substance: No Vital Signs: 12/11/21 17:54 12/11/21 18:00 12/11/21 18:32 Temperature 98.3 F Temperature Source Oral Pulse Rate 84 78 Pulse Rate [Right Radial] 93 H Respiratory Rate 18 18 18 Blood Pressure 129/80 166/97 H Blood Pressure [Right Arm] 151/89 H Blood Pressure Mean 96 120 Blood Pressure Mean [Right Arm] 109 Blood Pressure Source [Right Arm] Automatic Cuff Blood Pressure Position [Right Arm] Sitting 02 Sat by Pulse Oximetry 97 97 98 Oxygen Delivery Method Room Air 12/11/21 19:30 Temperature Temperature Source Pulse Rate 61 Pulse Rate [Right Radial] Respiratory Rate Blood Pressure 132/65 Blood Pressure [Right Arm] Blood Pressure Mean Blood Pressure Mean [Right Arm] Blood Pressure Source [Right Arm] Blood Pressure Position [Right Arm] 02 Sat by Pulse Oximetry 95 Oxygen Delivery Method - Lab Data Lab Results 12/11/21 18:15: WBC 6.0, RBC 4.74, Hgb 14.6, Hct 43.5, MCV 91.8, MCH 30.7, MCHC 33.4, RDW 12.9, Plt Count 288, MPV 6.8 L, Neut % (Auto) 71.1, Lymph % (Auto) 15.9, Garden % (Auto) 6.7, Eos % (Auto) 5.5, Baso % (Auto) 0.7, Neut # (Auto) 4.2, Lymph # (Auto) 1.0, Garden # (Auto) 0.4, Eos # (Auto) 0.3, Baso # (Auto) 0.0 12/11/21 18:15: Sodium 143, Potassium 4.2, Chloride 107, Carbon Dioxide 30, Anion Gap 10.2, BUN 30 H, Creatinine 1.20, Estimated Creat Clear 87, Estimated GFR 62, Est GFR ( Amer) 74, Glucose 111 H, Calcium 9.8, Total Bilirubin 0.5, AST 33, ALT 26, Alkaline Phosphatase 44, Total Protein 7.9, Albumin 4.5, Globulin 3.4 H, Albumin/Globulin Ratio 1.3, Lipase 108 12/11/21 18:15: Lactate 1.1 12/11/21 18:30: Urine Color Yellow, Urine Appearance Clear, Urine pH 6.0, Ur Specific [place] 1.025, Urine Protein Negative, Urine Glucose (UA) Negative, Urine Ketones Negative, Urine Blood 3+, Urine Nitrate Negative, Urine Bilirubin Negative, Urine Urobilinogen 1.0, Ur Leukocyte Esterase Negative, Urine RBC 10-20 Result diagrams: 12/11/21 18:15 12/11/21 18:15 Orders (Tests/Meds): ED MEDICATIONS Discontinued Medications Generic Name Dose Route Start Last Admin Trade Name Terrellq PRN Reason Stop Dose Admin Iopamidol 75 ml 12/11/21 19:07 12/11/21 19:09 Iopamidol-370 (76%);100ml Bottle IV 12/11/21 19:08 75 ml ONCE ONE Administration Ketorolac Tromethamine 15 mg 12/11/21 17:56 12/11/21 18:29 Ketorolac 30mg/Ml Vial IV 12/11/21 17:57 15 mg ONCE ONE Adm
[2021-12-11 18:00] VITALS: BP 129/80; PULSE 84; RESP 18; O2SAT 97
[2021-12-11 18:24] LABS: Basophils % 0.7 % (0.1-2.0); Eosinophils # 0.3 K/mm3 (0.0-0.4); Eosinophils % 5.5 % (0.1-12.0); Hematocrit 43.5 % (42.0-52.0); Hemoglobin 14.6 g/dL (14.1-18.0); Lymphocytes % 15.9 % (10-50); Mean Corpuscular HGB Conc 33.4 g/dL (31.8-35.4); Mean Corpuscular Hemoglobin 30.7 pg (27.0-31.2); Mean Corpuscular Volume 91.8 fl (80-94); Mean Platelet Volume 6.8 fl (7.4-10.4); Monocytes # 0.4 K/mm3 (0.1-1.0); Monocytes % 6.7 % (1.7-9.3); Neutrophils # 4.2 K/mm3 (1.8-7.8); Neutrophils % 71.1 % (37.0-80.0); Platelet Count 288 K/mm3 (142-424); Red Blood Count 4.74 M/mm3 (4.60-6.20); Red Cell Distribution Width 12.9 % (11.5-17.5)
[2021-12-11 18:30] LABS: Chloride 107 mmol/L (98-107); Potassium 4.2 mmoL/L (3.5-5.1); Sodium 143 mmol/L (136-145)
--- NOTE | 2021-12-11 18:30 | PC.NURSE ---
PT AMBULATED UP TO BR
[2021-12-11 18:32] VITALS: BP 166/97; PULSE 78; RESP 18; O2SAT 98
[2021-12-11 18:32] LABS: Alanine Aminotransferase 26 U/L (12-78); Aspartate Amino Transferase 33 U/L (17-59); Bilirubin,Total 0.5 mg/dl (0.2-1.3); Blood Urea Nitrogen 30 mg/dl (9-20); Creatinine Clearance Estimated 87 mL/min (50-200); Estimated Glomerular Filt Rate 62 ml/min (>60); GFR (African American) 74 ML/MIN (>60)
[2021-12-11 18:33] LABS: Microscopic, Urine URINE MICROSCOPIC (MICROSCOPIC)
[2021-12-11 18:33] LABS: Albumin Level 4.5 g/dl (3.5-5.0); Albumin/Globulin Ratio 1.3 (1.1-1.8); Alkaline Phosphatase 44 U/L (38-126); Anion Gap 10.2 mEq/L (5-15); Carbon Dioxide 30 mmol/L (22.0-30.0); Globulin 3.4 g/dL (1.3-3.2); Lipase 108 U/L (23-300); Total Protein,Serum 7.9 g/dl (6.3-8.2)
[2021-12-11 18:34] LABS: Lactic Acid 1.1 mmol/L (0.7-2.1)
[2021-12-11 18:38] LABS: Glucose 111 mg/dl (74-100)
[2021-12-11 18:39] LABS: Calcium 9.8 mg/dl (8.4-10.2)
[2021-12-11 18:41] LABS: Appearance,Urine CLEAR (Clear); Bilirubin,Urine Negative (Negative); Blood, Urine 3+ (Negative); Color,Urine YELLOW (Yellow); Glucose,Urine (UA) Negative (Negative); Ketones,Urine Negative (Negative); Leukocyte Esterase,Urine Negative (Negative); Nitrate,Urine Negative (Negative); Protein,Urine Negative (Negative); Specific Gravity, Urine 1.025 (1.005-1.030)
[2021-12-11 19:30] VITALS: BP 132/65; PULSE 61; O2SAT 95
[2021-12-11 20:08] VITALS: BP 130/65; PULSE 60; RESP 18; TEMP 36.8; O2SAT 99
== END 2021-12-11 20:14 | disposition home or self-care (01) ==
PROVIDERS: Emergency Provider Emergency Medicine; PCP Family Medicine
DX: K40.90 Unilateral inguinal hernia, without obstruction or gangrene, not specified as recurrent (principal); R10.30 Lower abdominal pain, unspecified; K21.9 Gastro-esophageal reflux disease without esophagitis; I10 Essential (primary) hypertension; F70 Mild intellectual disabilities
CPT/HCPCS: 36415; 74177; 80053; 81001; 83605; 83690; 85025; 96374; 99284; Q9967

== ENCOUNTER → 2022-01-28 07:36 | Outpatient (CLI) | payer MEDICARE, SELFPAY | PROVIDERS: PCP Family Medicine; Visit Provider Urology | DX: R31.9 Hematuria, unspecified (principal); Z01.812 Encounter for preprocedural laboratory examination; Z20.822 Contact with and (suspected) exposure to COVID-19 | CPT/HCPCS: C9803; U0003; U0005 ==

== ENCOUNTER 2022-01-31 10:26 | Day surgery (SDC) | payer MEDICARE, SELFPAY ==
[2022-01-27 11:49] VITALS: BMI 23.6
[2022-01-31 10:49] VITALS: BP 141/71; PULSE 68; RESP 16; TEMP 36.3; O2SAT 97
[2022-01-31 12:03] VITALS: BP 140/73; PULSE 64; RESP 18; TEMP 36.2; O2SAT 98
--- NOTE | 2022-01-31 12:05 | P.OP_ITS ---
Date of procedure: 01/31/22 Pre-op Diagnosis:: Microscopic hematuria Post-op Diagnosis:: BPH Procedure performed:: Cystoscopy Surgeon:: Teo Villanueva MD Anesthesia: local Estimated blood loss (mL): 0 Clinical Note:: 61-year-old white male with microscopic hematuria presents for cystoscopic ev aluation. Previous CT scan has shown no evidence of stones or renal masses. Operative findings:: No evidence of bladder abnormalities. There was evidence of BPH. Operative note:: Patient taken to the cystoscopy suite after informed consent was obtained. He was prepped draped in the standard surgical fashion in the supine position. 2% lidocaine was placed into the urethra and clamped. After 5 minutes the flexible cystoscope was introduced into the urethral meatus. Passed into the bladder without difficulty and the bladder was examined in a systematic fashion. There is no evidence of mucosal abnormalities, stones, diverticula or trabeculation. The ureteral orifices in their normal anatomic position and well away from the bladder neck. There was clear efflux of urine from each orifice. The scope was retroflexed showing a small median lobe of the prostate. There is no erythema at the median lobe. Scope was retracted back to the prostatic urethra and there was some hyperplasia of the prostate but no significant obstruction. No bleeding nidus was noted. There is no evidence of urethral stricture. The scope was removed the patient tolerated the procedure well. We discussed the findings today patient was reassured no evidence of suspicious findings. The microscopic blood is likely coming from the prostatic mucosa. He denies any significant voiding symptoms. Condition: stable Disposition: same day Specimens:: None Complications:: None
[2022-01-31 12:15] VITALS: BP 140/73; PULSE 64; RESP 18; TEMP 36.2; O2SAT 98
== END 2022-01-31 12:15 | disposition home or self-care (01) ==
PROVIDERS: PCP Family Medicine; Visit Provider Urology
DX: N40.1 Benign prostatic hyperplasia with lower urinary tract symptoms (principal); R31.29 Other microscopic hematuria; Z79.899 Other long term (current) drug therapy
CPT/HCPCS: 52000

== ENCOUNTER 2022-03-28 06:05 | Day surgery (SDC) | payer MEDICARE, SELFPAY ==
[2022-03-24 11:01] VITALS: BMI 23.6
[2022-03-28] VITALS (13 sets, daily range): BP systolic 132–146; BP diastolic 76–93; PULSE 65–82; RESP 12–18; TEMP 36.1–43; O2SAT 91–97
[2022-03-28 06:45] LABS: Basophils # 0.1 K/mm3 (0-0.2); Basophils % 1.3 % (0.1-2.0); Eosinophils # 0.3 K/mm3 (0.0-0.4); Eosinophils % 6.4 % (0.1-12.0); Hematocrit 47.6 % (42.0-52.0); Hemoglobin 14.9 g/dL (14.1-18.0); Lymphocytes # 1.1 K/mm3 (0.7-4.5); Lymphocytes % 20.9 % (10-50); Mean Corpuscular HGB Conc 31.4 g/dL (31.8-35.4); Mean Corpuscular Hemoglobin 29.3 pg (27.0-31.2); Mean Corpuscular Volume 93.3 fl (80-94); Mean Platelet Volume 7.4 fl (7.4-10.4); Monocytes # 0.4 K/mm3 (0.1-1.0); Monocytes % 8.4 % (1.7-9.3); Neutrophils # 3.2 K/mm3 (1.8-7.8); Platelet Count 325 K/mm3 (142-424); Red Cell Distribution Width 13.4 % (11.5-17.5)
--- NOTE | 2022-03-28 06:49 | EXP.ANES.CKL ---
[facility] Medical History Abdominal pain Allergies Anxiety Arthritis Edema History of back pain Hyperlipidemia Hypertension Kidney stone Left inguinal hernia Pneumonia Sinus headache Surgical History (Updated 03/28/22 @ 06:28 by Marc Rea RN) History of knee surgery Hx of colonoscopy Family History Father Family history of heart attack Sister Family history of cancer Social History (Updated 03/28/22 @ 06:30 by Marc Rea RN) Smoking Status: Former smoker pack-years: 12 years smoked: 30 smoking status stop date: 1979 second hand exposure: No alcohol intake: never substance use type: denies use current occupational status: unemployed Travel in the last 8 weeks: None household members: significant other and friend(s) housing: house current occupation: [employer] current occupational exposures/hazards: Yes caffeine: Yes [facility] Anesthesia Checklist Patient Identification Patient Identification: Verbal (Name & ) Structural Data Admitted From: Home Planned Operative Procedure/s: bilat inguinal hernia rpr Consent for Planned Operative Procedure(s) Verified: Yes NPO Status Verified Time NPO: 00:00 Additional verifications Anesthesia Reactions: No Hx Blood Transfusions: No Blood Transfusion Reaction: No Airway Assessment C-Spine Mobility Assessed: Yes TMJ Mobility Assessed: Yes Dentition: Dentures-good fit Neurological Assessment Level of Consciousness: Awake, Alert and Appropriate Anesthesia Plan Anesthesia Risk discussed: Yes Anesthesia Plan: Verified ASA Class: III Anesthesia Type: General
[2022-03-28 06:59] LABS: Alanine Aminotransferase 25 U/L (12-78); Albumin Level 4.6 g/dl (3.5-5.0); Albumin/Globulin Ratio 1.4 (1.1-1.8); Alkaline Phosphatase 67 U/L (38-126); Anion Gap 15.2 mEq/L (5-15); Aspartate Amino Transferase 32 U/L (17-59); Bilirubin,Total 0.9 mg/dl (0.2-1.3); Blood Urea Nitrogen 18 mg/dl (9-20); Carbon Dioxide 28 mmol/L (22.0-30.0); Chloride 101 mmol/L (98-107); Creatinine Clearance Estimated 94 mL/min (50-200); Estimated Glomerular Filt Rate 68 ml/min (>60); GFR (African American) 82 ML/MIN (>60); Globulin 3.3 g/dL (1.3-3.2); Glucose 116 mg/dl (74-100); Potassium 4.2 mmoL/L (3.5-5.1); Sodium 140 mmol/L (136-145); Total Protein,Serum 7.9 g/dl (6.3-8.2)
[2022-03-28 07:00] LABS: Prothrombin Time 10.8 seconds (10.1-12.5)
--- NOTE | 2022-03-28 09:41 | EXP.OP.NOTE ---
Date of procedure: 03/28/22 Pre-op Diagnosis:: Bilateral inguinal hernias Umbilical hernia Post-op Diagnosis:: Same Procedure performed:: Laparoscopic bilateral inguinal hernia repair (TEPP) with placement of large Bard 3D max light mesh on the right and large Bard 3D max nonlight on the left Open umbilical hernia repair with placement of small Bard Ventralex mesh Surgeon:: Kareem Sterling MD [facility] ATTENDANT:: Miah Burnett Anesthesia: GETA Estimated blood loss (mL): 15 Clinical Note:: Patient presents for hernia surgery.? He is a 62-year-old male whom I had seen in the office as a referral from Dr. Samuels initially on 01/13/2022 for left inguinal hernia.? Patient had developed acute left flank pain and was seen in the emergency department on 12/11/2021.? CT scan was performed which revealed findings of left inguinal hernia and umbilical hernia.? He works in a [employer].? I had seen him at that time and recommended consideration of laparoscopic repair as he had umbilical hernia and findings consistent with a very tiny asymptomatic right inguinal hernia as well as moderate left inguinal hernia.? However, he wished to wait until the [employer] season was essentially over prior to proceeding with surgery. Operative findings:: Patient had a moderate indirect left inguinal hernia with herniated fatty tissue. He had a small indirect right inguinal hernia with patent processes vaginalis. There was a relatively small umbilical defect measuring about 1 cm with herniated preperitoneal fat. Operative note:: Patient was taken the operating room. He was positioned in supine position. General anesthesia was induced via endotracheal tube. Lopez catheter was placed. Abdomen was prepped and draped in the standard surgical fashion. Subumbilical skin incision was made and dissection was carried down to the anterior rectus fascia. Anterior rectus fascia was incised immediately to the left of the midline. Rectus muscles were retracted laterally and preperitoneal space was entered. Dissecting balloon trocar was inserted. Preperitoneal space was dissected free. Dissecting balloon trocar was then removed and replaced with the structural balloon trocar. A couple of 5 mm trochars were inserted in the midline inferior to the umbilicus. Attention was turned to dissection on the left side. Landmarks were clearly identified easily identifying Arvind's ligament. Inferior epigastric vessels and cord structures were identified. Preperitoneal space was dissected free. There was a moderate indirect defect with an appreciable amount of herniated fatty tissues which were reduced and returned to the normal anatomic position. Cord structures, inferior epigastric vessels, and iliac vessels were identified and preserved. Dissection was carried out laterally to allow for placement of the mesh. Once dissection was fully carried out on the left side attention was turned to dissection on the right. In a similar fashion all landmarks were identified and dissection was carried out dissecting free the preperitoneal space. Arvind's ligament, inferior epigastric vessels, iliac vessels, and cord structures were identified. After dissection was performed there was noted to be a moderate defect as a indirect hernia. Dissection was carried out laterally for placement of mesh. Large sized Bard 3D max mesh (light) was inserted into the preperitoneal space on the right side for repair. It was oriented intracorporeally to cover the entire iliopectineal orifice. Repair appeared adequate. Next attention was turned to placement of mesh on the left side. A large sized nonlight Bard 3D max mesh was placed on the left side. It was oriented intracorporeally to cover the iliopectineal orifice in its entirety covering the defect with good overlap. There appeared to be good hemostasis. Mesh was observed in position as CO2 pneumo preperitoneum was evacuated. Trochars were then removed. Local anesthetic was infiltrated f
--- NOTE | 2022-03-28 09:46 | EXP.ANES.I ---
[facility] Anesthesia Record Part I Anesthesia Record I Intake, IV Amount: 1,300 Estimated blood loss (mL): 10 Urine output (mL): 300 Blood Products used (#): none Blood Pressure: 146/89 SaO2: 91 Pulse Rate: 71 Respiratory Rate: 16 Temperature: 97.3 F Patient is:: Drowsy and Stable Stable to PACU at:: 09:45
--- NOTE | 2022-03-28 10:29 | EXP.ANES.II ---
[facility] Anesthesia Record Part II Anesthesia Record Part II Discharge Time: 10:17 Destination: Surgical Day Care (OP Surgery) PACU nurse assessment reviewed?: Yes Patient Condition:: Good Anesthesia Complications:: None Swallowing reflex intact?: Yes Cyanosis?: No Blood Pressure: 132/93 Pulse Rate: 69 Temperature: 97.3 F Mental Status: Alert & Oriented Pain level:: 0 Nausea and/or vomitting:: None Intake, IV Amount: 0
--- NOTE | 2022-03-28 11:01 | PC.NURSE ---
DURING POST OPERATIVE STAY PT'S O2 SATS REMAINED BETWEEN 93-96% RESTING. PT ENCOURAGED TO TAKE GOOD DEEP BREATHS. O2 SATS WOULD DROP SLIGHTLY TO LOW 90'S WHEN TALKING.
[2022-03-28 17:47] LABS: Microscopic,Cath URINE MICROSCOPIC (MICROSCOPIC)
[2022-03-28 17:59] LABS: Appearance,Urine/Cath CLEAR (Clear); Bilirubin,Cath Negative (Negative); Blood, Urine/Cath 2+ (Negative); Color,Urine/Cath YELLOW (Yellow); Glucose,Urine/Cath (UA) Negative (Negative); Ketones,Urine/Cath Negative (Negative); Leukocyte Esterase,Cath Negative (Negative); Nitrate,Cath Negative (Negative); Protein,Urine/Cath Negative (Negative); Specific Gravity, Urine/Cath 1.015 (1.005-1.030)
== END 2022-03-28 11:01 | disposition home or self-care (01) ==
PROVIDERS: PCP Family Medicine; Visit Provider Surgery
PROC: 0YQ64ZZ Repair Left Inguinal Region, Percutaneous Endoscopic Approach (ICD-10-PCS; principal; 2022-03-28 07:30)
DX: K40.20 Bilateral inguinal hernia, without obstruction or gangrene, not specified as recurrent (principal); K42.9 Umbilical hernia without obstruction or gangrene; R07.2 Precordial pain; Z79.899 Other long term (current) drug therapy
CPT/HCPCS: 49585; 49650; 80053; 81001; 85025; 85610; 88302; 96374; C1781; J2405; J2710

== ENCOUNTER → 2022-04-26 10:46 | Outpatient (CLI) | payer MEDICARE, SELFPAY ==
[2022-04-26 20:16] LABS: Thyroid Stimulating Hormone 0.81 uIU/mL (0.465-4.68)
== END ==
PROVIDERS: PCP Family Medicine; Visit Provider Family Medicine
DX: R25.1 Tremor, unspecified (principal); Z79.899 Other long term (current) drug therapy
CPT/HCPCS: 84443

== ENCOUNTER → 2022-10-11 10:03 | Outpatient (CLI) | payer MEDICARE, SELFPAY ==
[2022-10-11 18:40] LABS: Alanine Aminotransferase 28 U/L (12-78); Albumin Level 4.4 g/dl (3.5-5.0); Albumin/Globulin Ratio 1.3 (1.1-1.8); Alkaline Phosphatase 49 U/L (38-126); Anion Gap 18.2 mEq/L (5-15); Aspartate Amino Transferase 33 U/L (17-59); Bilirubin,Total 0.8 mg/dl (0.2-1.3); Blood Urea Nitrogen 31 mg/dl (9-20); Calcium 9.7 mg/dl (8.4-10.2); Carbon Dioxide 27 mmol/L (22.0-30.0); Chloride 100 mmol/L (98-107); Estimated Glomerular Filt Rate 76 ml/min (>60); GFR (African American) 92 ML/MIN (>60); Globulin 3.3 g/dL (1.3-3.2); Glucose 65 mg/dl (74-100); Potassium 5.2 mmoL/L (3.5-5.1); Sodium 140 mmol/L (136-145); Total Protein,Serum 7.7 g/dl (6.3-8.2)
== END ==
PROVIDERS: PCP Family Medicine; Visit Provider Family Medicine
DX: I10 Essential (primary) hypertension (principal)
CPT/HCPCS: 80053

== ENCOUNTER → 2023-01-24 11:00 | Outpatient (CLI) | payer MEDICARE, SELFPAY ==
[2023-01-24 18:25] LABS: Basophils % 0.5 % (0.1-2.0); Eosinophils # 0.1 K/mm3 (0.0-0.4); Hematocrit 48.5 % (42.0-52.0); Hemoglobin 15.9 g/dL (14.1-18.0); Lymphocytes # 1.2 K/mm3 (0.7-4.5); Lymphocytes % 24.4 % (10-50); Mean Corpuscular HGB Conc 32.7 g/dL (31.8-35.4); Mean Corpuscular Hemoglobin 30.3 pg (27.0-31.2); Mean Corpuscular Volume 92.5 fl (80-94); Mean Platelet Volume 9.1 fl (7.4-10.4); Monocytes # 0.4 K/mm3 (0.1-1.0); Monocytes % 8.8 % (1.7-9.3); Neutrophils % 63.2 % (37.0-80.0); Platelet Count 315 K/mm3 (142-424); Red Blood Count 5.24 M/mm3 (4.60-6.20); Red Cell Distribution Width 13.3 % (11.5-17.5); White Blood Count 4.7 K/mm3 (4.8-10.8)
== END ==
PROVIDERS: PCP Family Medicine; Visit Provider Family Medicine
DX: R10.9 Unspecified abdominal pain (principal)
CPT/HCPCS: 85025; 87086

== ENCOUNTER → 2023-02-07 01:00 | Outpatient (CLI) | payer MEDICARE, SELFPAY | PROVIDERS: PCP Nurse Practitioner; Visit Provider Nurse Practitioner | DX: N50.89 Other specified disorders of the male genital organs (principal); B95.7 Other staphylococcus as the cause of diseases classified elsewhere | CPT/HCPCS: 87070; 87077; 87186; 87205 ==

== ENCOUNTER → 2023-02-09 09:18 | Outpatient (CLI) | payer MEDICARE, SELFPAY ==
--- NOTE | 2023-02-09 09:22 | XR_ITS ---
FINAL REPORT CLINICAL HISTORY: right lower extremity swelling FINDINGS: Right knee Two views were obtained. There is no acute fracture or dislocation. There are marked hypertrophic changes of osteoarthritis of the medial and lateral joint margins. There is prominent osteophyte formation along the undersurface of the patella. No soft tissue abnormality is identified. IMPRESSION: Advanced hypertrophic changes of osteoarthritis. Reviewed, Interpreted and Dictated by Cheo August MD Transcribed by Lindy Tobar Authenticated and [facility]
--- NOTE | 2023-02-09 09:37 | CT_ITS ---
FINAL REPORT TECHNIQUE: After the administration of oral and intravenous contrast, axial images were obtained through the abdomen and pelvis by computed tomography. The study was performed with techniques to keep radiation dose as low as reasonably achievable, (ALARA). Individual dose reduction techniques using automated exposure control or adjustment of mA and/or kV according to the patient's size were employed. CLINICAL HISTORY: pain right side COMPARISON: 12/11/2021 FINDINGS: Abdomen: Mild scarring is present in the lung bases. The liver parenchyma reveals mild fatty infiltration of the liver. A small hiatal hernia is present. The gallbladder is present. The spleen, pancreas, and adrenals appear unremarkable. There are multiple bilateral low densities in the kidneys, compatible with renal cysts, the largest in the right kidney measuring 5.2 cm in diameter. The aorta is normal in caliber. There is no free fluid or adenopathy. There are advanced hypertrophic changes in the lumbar spine, most prominently at the L2-3, L4-5, and L5-S1 levels. Pelvis: The appendix is normal. The urinary bladder is unremarkable. There is no free fluid or adenopathy. IMPRESSION: Mild fatty infiltration of the liver. Multiple bilateral renal cysts, the largest measuring 5.2 cm in diameter. Advanced hypertrophic changes in the lumbar spine. Reviewed, Interpreted and Dictated by Cheo August MD Transcribed by Ariana Aragon Authenticated and [facility]
[2023-02-09 10:17] LABS: Blood Urea Nitrogen 28 mg/dl (9-20); Estimated Glomerular Filt Rate 68 ml/min (>60); GFR (African American) 82 ML/MIN (>60)
== END ==
LOC: RAD 09:19
PROVIDERS: PCP Family Medicine; Visit Provider Family Medicine
DX: M17.11 Unilateral primary osteoarthritis, right knee (principal); R10.9 Unspecified abdominal pain
CPT/HCPCS: 36415; 73560; 74177; 82565; 84520; Q9967

== ENCOUNTER → 2023-03-07 08:31 | Outpatient (CLI) | payer MEDICARE, SELFPAY ==
--- NOTE | 2023-03-07 08:39 | US_ITS ---
FINAL REPORT CLINICAL HISTORY: RUQ abdominal pain FINDINGS: Sonographic images of the right upper quadrant were obtained. The pancreas is partially obscured. There is fatty infiltration of the liver. The gallbladder appears normal without evidence of gallstones.There is no evidence of biliary ductal dilatation.The common duct measures 3 mm. There is a right renal cyst measuring 4.9 cm. IMPRESSION: Fatty liver. Right renal cyst. Reviewed, Interpreted and Dictated by Kareem Cha III, MD Transcribed by Lindy Tobar Authenticated and [facility]
== END ==
PROVIDERS: PCP Nurse Practitioner; Visit Provider Nurse Practitioner
DX: R10.11 Right upper quadrant pain (principal)
CPT/HCPCS: 76705

== ENCOUNTER 2023-06-19 13:00 | Outpatient (RCR) | payer MEDICARE, SELFPAY ==
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
--- NOTE | 2023-05-29 09:42 | HMH.RHREAS ---
Rehab Reassessment Rehab OP Re-assessment Start: 05/01/23 08:07 Freq: Status: Active Protocol: Document 05/29/23 08:46 RUPESH (Rec: 05/29/23 09:42 STEWARTGINA [id number]) E-signed By Bobbi Caicedo PT Lower Extremity Functional Index Activities Today, do you or would you have any difficulty at all with: a.Any of your usual work, housework or Moderate difficulty school activities b. Your usual hobbies, recreational or Moderate difficulty sporting activities c. Getting into or out of the bath Quite a bit of difficulty d. Walking between rooms Moderate difficulty e. Putting on your shoes or socks A little bit of difficulty f. Squatting Extreme difficulty or unable to perform activity g. Lifting an object, like a bag of A little bit of difficulty groceries from the floor h. Performing light activities around A little bit of difficulty your home i. Performing heavy activities around Moderate difficulty your home j. Getting into or out of a car A little bit of difficulty k. Walking 2 blocks Quite a bit of difficulty l. Walking a mile Extreme difficulty or unable to perform activity m. Going up or down 10 stairs (about 1 Quite a bit of difficulty flight of stairs) n. Standing for 1 hour Quite a bit of difficulty o. Sitting for 1 hour Moderate difficulty p. Running on even ground Extreme difficulty or unable to perform activity q. Running on uneven ground Extreme difficulty or unable to perform activity r. Making sharp turns while running fast Extreme difficulty or unable to perform activity s. Hopping Quite a bit of difficulty t. Rolling over in bed Quite a bit of difficulty LEFI Score Lower Extremity Functional Index Score 28 Rehab Re-assessment Subjective Subjective Pt reports he has been unable to attend PT treatment sessions since his initial evaluation due to transportation issues. Pt reports his knee is doing well overall but he continues to have medial right knee pain and stiffness in the morning time rated 10/10 on VAS scale. Pt reports he is taking Mobic which usually helps with pain . Pt reports compliance with HEP. Objective Objective Notes Palpation: medial R knee joint 3/4 TTP R knee AROM: 0-4-110 (report of pain at end range knee flexion) Assessment Assessment Notes Pt has attended 1 follow-up treatment session on this date since the initial evaluation performed on 05/01/23. Pt voiced compliance with HEP but was unable to perform exercises when asked and requested another copy of the exercises. Pt demonstrated regression in LEFS score and worsening R knee AROM this date compared to the initial evaluation. Pt was educated on importance of compliance with HEP and PT POC to assist with overall progress. Pt would benefit from skilled PT to improve pain, R knee AROM, RLE strength, gait and functional activity tolerance to improve overall QOL and function. Patient goals met ST/5 Goals Not Met LTG Revised Goals n/a Plan Plan Continue initial POC Frequency of Therapy 2x/week Duration of therapy 4 weeks Time and Billing Re-Eval Time 10 Re-Eval Billing Units 1 PHYSICIAN CERTIFICATION: I certify the specified therapy services for Jaxson Huynh are required, authorized, and reviewed every 30 days.
== END 2023-09-01 10:55 | disposition home or self-care (01) ==
LOC: PT 13:00
PROVIDERS: PCP Nurse Practitioner; Visit Provider Orthopaedic Surgery
DX: M17.11 Unilateral primary osteoarthritis, right knee (principal)
CPT/HCPCS: 97110; 97163; 97164; 97530

== ENCOUNTER 2023-09-26 11:46 | Outpatient (CLI) | payer MEDICARE, SELFPAY ==
[2023-09-26 19:06] LABS: Basophils # 0.1 K/mm3 (0-0.2); Basophils % 0.9 % (0.1-2.0); Eosinophils # 0.3 K/mm3 (0.0-0.4); Eosinophils % 4.7 % (0.1-12.0); Hematocrit 47.7 % (42.0-52.0); Hemoglobin 15.4 g/dL (14.1-18.0); Lymphocytes % 18.3 % (10-50); Mean Corpuscular HGB Conc 32.3 g/dL (31.8-35.4); Mean Corpuscular Hemoglobin 31.1 pg (27.0-31.2); Mean Corpuscular Volume 96.1 fl (80-94); Mean Platelet Volume 9.2 fl (7.4-10.4); Monocytes # 0.4 K/mm3 (0.1-1.0); Monocytes % 7.9 % (1.7-9.3); Neutrophils # 3.8 K/mm3 (1.8-7.8); Neutrophils % 68.3 % (37.0-80.0); Platelet Count 288 K/mm3 (142-424); Red Blood Count 4.96 M/mm3 (4.60-6.20); Red Cell Distribution Width 13.9 % (11.5-17.5); White Blood Count 5.6 K/mm3 (4.8-10.8)
[2023-09-26 19:56] LABS: Alanine Aminotransferase 24 U/L (12-78); Albumin Level 4.4 g/dl (3.5-5.0); Albumin/Globulin Ratio 1.4 (1.1-1.8); Alkaline Phosphatase 52 U/L (38-126); Aspartate Amino Transferase 28 U/L (17-59); Bilirubin,Total 0.5 mg/dl (0.2-1.3); Blood Urea Nitrogen 28 mg/dl (9-20); Calcium 9.9 mg/dl (8.4-10.2); Carbon Dioxide 25 mmol/L (22.0-30.0); Chloride 106 mmol/L (98-107); Estimated Glomerular Filt Rate 56 ml/min (>60); GFR (African American) 67 ML/MIN (>60); Globulin 3.2 g/dL (1.3-3.2); Glucose 99 mg/dl (74-100); Sodium 140 mmol/L (136-145); Total Protein,Serum 7.6 g/dl (6.3-8.2)
== END 2023-09-26 23:59 | disposition home or self-care (01) ==
LOC: LAB.DROPOF 09-27 11:47
PROVIDERS: PCP Family Medicine; Visit Provider Family Medicine
DX: M17.11 Unilateral primary osteoarthritis, right knee (principal); I10 Essential (primary) hypertension
CPT/HCPCS: 80053; 85025

== ENCOUNTER 2023-10-28 22:42 | Emergency (ER) | payer MEDICARE, SELFPAY ==
[2023-10-28 22:44] VITALS: BP 137/78; PULSE 63; RESP 18; TEMP 36.8; O2SAT 95; BMI 30.4
[2023-10-28 23:01] VITALS: BP 115/65; PULSE 58; RESP 16; TEMP 36.7; O2SAT 97
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
--- NOTE | 2023-10-28 23:12 | CT_ITS ---
PROCEDURE INFORMATION: Exam: CT Abdomen And Pelvis With Contrast Exam date and time: 10/29/2023 12:02 AM Age: 63 years old Clinical indication: Abdominal pain; Other: Rlq; Additional info: Rlq pain TECHNIQUE: Imaging protocol: Computed tomography of the abdomen and pelvis with contrast. Radiation optimization: All CT scans at this facility use at least one of these dose optimization techniques: automated exposure control; mA and/or kV adjustment per patient size (includes targeted exams where dose is matched to clinical indication); or iterative reconstruction. Contrast material: ISOVUE; Contrast volume: 75 ml; Contrast route: IV; COMPARISON: 1. CT ABDOMEN PELVIS W CON 02/09/2023 10:[address] ABDOMEN PELVIS W CON 12/11/2021 6:50 PM 3. US ABDOMEN LIMITED 03/07/2023 8:50 AM FINDINGS: Lungs: Scattered areas of bronchial wall thickening which are likely chronic inflammatory. A few areas of subpleural reticulation are noted, nonspecific. Liver: There are low-density lesions in the liver which most likely reflect a combination of cysts and/or hemangiomas. Gallbladder and bile ducts: No acute process. Pancreas: There is fatty replacement of the pancreas. Spleen: Normal. Adrenal glands: The adrenal glands appear normal. Kidneys and ureters: There are bilateral simple appearing renal cysts. Stomach and bowel: The stomach, small bowel, and colon are well-distended and show no evidence of wall thickening, masses, or obstruction. Appendix: The appendix is normal in appearance. Intraperitoneal space: Unremarkable. Vasculature: There is atherosclerotic disease of the visualized aorta and its major branch vessels. Lymph nodes: There are calcified mediastinal lymph nodes likely reflecting prior granulomatous disease. Urinary bladder: Unremarkable as visualized. Reproductive: No acute process. Bones/joints: There is diffuse degenerative disease of the visualized osseous structures. Soft tissues: There are postsurgical changes of the ventral abdominal wall. IMPRESSION: 1. Normal appendix. 2. No acute inflammatory or obstructive process is identified. Incidental findings are described within the findings section. COMMENTS: Consistent with the [employer]'s Incidental Findings Committee white paper (J Am Nato Radiol 2018): Any incidental renal lesion less than 1 cm or classified as too small to characterize, or any incidental cystic renal lesion characterized as simple-appearing, is likely benign. No follow-up imaging is recommended for these lesions per consensus recommendations based on imaging criteria.
[2023-10-28] MEDS: METHOCARBAMOL 500MG TABLET 500 MG PO (23:23)
[2023-10-28] MEDS: ACETAMINOPHEN 500MG TAB 1000 MG PO (23:23)
--- NOTE | 2023-10-28 23:26 | PC.NURSE ---
I rounded on the pt and took him a warm blanket. no new complaints at this time.
[2023-10-28 23:34] LABS: Basophils % 0.6 % (0.1-2.0); Eosinophils # 0.3 K/mm3 (0.0-0.4); Eosinophils % 4.1 % (0.1-12.0); Hematocrit 43.6 % (42.0-52.0); Hemoglobin 14.5 g/dL (14.1-18.0); Lymphocytes # 1.2 K/mm3 (0.7-4.5); Lymphocytes % 18.4 % (10-50); Mean Corpuscular HGB Conc 33.2 g/dL (31.8-35.4); Mean Corpuscular Hemoglobin 30.7 pg (27.0-31.2); Mean Corpuscular Volume 92.5 fl (80-94); Mean Platelet Volume 7.5 fl (7.4-10.4); Monocytes # 0.4 K/mm3 (0.1-1.0); Monocytes % 6.2 % (1.7-9.3); Neutrophils # 4.7 K/mm3 (1.8-7.8); Neutrophils % 70.7 % (37.0-80.0); Platelet Count 255 K/mm3 (142-424); Red Blood Count 4.71 M/mm3 (4.60-6.20); Red Cell Distribution Width 13.6 % (11.5-17.5); White Blood Count 6.7 K/mm3 (4.8-10.8)
[2023-10-28 23:44] LABS: Microscopic, Urine URINE MICROSCOPIC (MICROSCOPIC)
[2023-10-28 23:46] LABS: Alanine Aminotransferase 34 U/L (12-78); Albumin Level 3.8 g/dl (3.5-5.0); Albumin/Globulin Ratio 1.1 (1.1-1.8); Alkaline Phosphatase 46 U/L (38-126); Anion Gap 10.7 mEq/L (5-15); Aspartate Amino Transferase 35 U/L (17-59); Bilirubin,Total 0.7 mg/dl (0.2-1.3); Blood Urea Nitrogen 24 mg/dl (9-20); Calcium 9.3 mg/dl (8.4-10.2); Carbon Dioxide 30 mmol/L (22.0-30.0); Chloride 103 mmol/L (98-107); Creatinine Clearance Estimated 106 mL/min (50-200); Estimated Glomerular Filt Rate 61 ml/min (>60); GFR (African American) 74 ML/MIN (>60); Globulin 3.5 g/dL (1.3-3.2); Glucose 131 mg/dl (74-100); Potassium 3.7 mmoL/L (3.5-5.1); Sodium 140 mmol/L (136-145); Total Protein,Serum 7.3 g/dl (6.3-8.2)
[2023-10-28 23:47] LABS: Appearance,Urine CLEAR (Clear); Bilirubin,Urine Negative (Negative); Blood, Urine 2+ (Negative); Color,Urine YELLOW (Yellow); Glucose,Urine (UA) Negative (Negative); Ketones,Urine Negative (Negative); Leukocyte Esterase,Urine Negative (Negative); Nitrate,Urine Negative (Negative); Protein,Urine Negative (Negative)
[2023-10-29 00:01] LABS: Bacteria,Urine Trace /lpf; Squamous Epithelial Cell,Urine Occasional #/hpf (0-5)
[2023-10-29] MEDS: IOPAMIDOL-370 (76%);100ML BOTTLE 75 ML IV (00:13)
[2023-10-29] MEDS: SODIUM CHLORIDE 0.9% 10ML SYR (RAD ONLY) 10 ML IV (00:15)
[2023-10-29] MEDS: MORPHINE 4MG/ML SYRINGE 4 MG IV (00:25)
[2023-10-29] MEDS: LIDOCAINE 5% TRANSDERMAL PATCH 1 EACH TP (00:27)
--- NOTE | 2023-10-29 01:15 | XR_ITS ---
PROCEDURE INFORMATION: Exam: XR Right Tibia and Fibula Exam date and time: 10/29/2023 1:32 AM Age: 63 years old Clinical indication: Other: Lump; Additional info: Mid-lower pretibial lump TECHNIQUE: Imaging protocol: Radiologic exam of the right tibia and fibula. Views: 2 views. COMPARISON: CR XR KNEE RT 2V 02/09/2023 9:24 AM FINDINGS: Bones/joints: The osseous structures are intact, with no signs of acute fracture, dislocation, or malalignment. Age-related degenerative changes are observed. There is no evidence of abnormal bone density or destructive lesions. Soft tissues: The soft tissues appear within normal limits. IMPRESSION: At the time of imaging, the study shows no acute osseous abnormalities but does reveal signs of age-related degenerative changes.
[2023-10-29 01:48] VITALS: BP 109/64; PULSE 48; RESP 16; TEMP 36.7; O2SAT 95
== END 2023-10-29 01:55 | disposition home or self-care (01) ==
PROVIDERS: Emergency Provider Emergency Medicine; PCP Family Medicine
DX: R10.31 Right lower quadrant pain (principal); I10 Essential (primary) hypertension; E78.5 Hyperlipidemia, unspecified; K21.9 Gastro-esophageal reflux disease without esophagitis; Y04.0XXA Assault by unarmed brawl or fight, initial encounter
CPT/HCPCS: 73590; 74177; 80053; 81001; 85025; 96374; 99285; J2270; Q9967

== ENCOUNTER 2023-12-04 10:32 | Outpatient (CLI) | payer SELFPAY ==
[2023-12-04 19:23] LABS: Chloride 109 mmol/L (98-107); Potassium 4.6 mmoL/L (3.5-5.1); Sodium 143 mmol/L (136-145)
[2023-12-04 19:26] LABS: Alanine Aminotransferase 20 U/L (12-78); Albumin Level 4.4 g/dl (3.5-5.0); Albumin/Globulin Ratio 1.3 (1.1-1.8); Alkaline Phosphatase 54 U/L (38-126); Anion Gap 12.6 mEq/L (5-15); Aspartate Amino Transferase 27 U/L (17-59); Bilirubin,Total 0.6 mg/dl (0.2-1.3); Blood Urea Nitrogen 27 mg/dl (9-20); Carbon Dioxide 26 mmol/L (22.0-30.0); Estimated Glomerular Filt Rate 51 ml/min (>60); GFR (African American) 62 ML/MIN (>60); Globulin 3.4 g/dL (1.3-3.2); Total Protein,Serum 7.8 g/dl (6.3-8.2)
[2023-12-04 19:27] LABS: Calcium 9.5 mg/dl (8.4-10.2); Glucose 94 mg/dl (74-100)
[2023-12-04 19:54] LABS: Thyroid Stimulating Hormone 1.31 uIU/mL (0.465-4.68)
== END 2023-12-04 23:59 | disposition home or self-care (01) ==
LOC: LAB.DROPOF 12-05 10:32
PROVIDERS: PCP Nurse Practitioner; Visit Provider Nurse Practitioner
DX: R29.6 Repeated falls (principal)
CPT/HCPCS: 80053; 84443

== ENCOUNTER 2024-01-08 18:48 | Outpatient (CLI) | payer MEDICAID, SELFPAY ==
[2024-01-08 19:24] LABS: Chloride 105 mmol/L (98-107); Sodium 138 mmol/L (136-145)
[2024-01-08 19:25] LABS: Potassium 4.3 mmoL/L (3.5-5.1)
[2024-01-08 19:27] LABS: Blood Urea Nitrogen 20 mg/dl (9-20); Estimated Glomerular Filt Rate 61 ml/min (>60); GFR (African American) 74 ML/MIN (>60)
[2024-01-08 19:28] LABS: Anion Gap 12.3 mEq/L (5-15); Calcium 9.4 mg/dl (8.4-10.2); Carbon Dioxide 25 mmol/L (22.0-30.0); Glucose 173 mg/dl (74-100)
== END 2024-01-08 23:59 | disposition home or self-care (01) ==
LOC: LAB.DROPOF 18:49
PROVIDERS: PCP Nurse Practitioner; Visit Provider Nurse Practitioner
DX: N28.9 Disorder of kidney and ureter, unspecified (principal)
CPT/HCPCS: 80048

== ENCOUNTER 2024-01-12 19:12 | Outpatient (CLI) | payer MEDICAID, SELFPAY ==
[2024-01-12 20:06] LABS: Hemoglobin A1C 5.9 % (4.0-6.0)
[2024-01-12 20:53] LABS: Chloride 107 mmol/L (98-107); Sodium 138 mmol/L (136-145)
[2024-01-12 20:54] LABS: Potassium 4.4 mmoL/L (3.5-5.1)
[2024-01-12 20:56] LABS: Anion Gap 11.4 mEq/L (5-15); Blood Urea Nitrogen 24 mg/dl (9-20); Carbon Dioxide 24 mmol/L (22.0-30.0); Estimated Glomerular Filt Rate 68 ml/min (>60); GFR (African American) 82 ML/MIN (>60)
[2024-01-12 20:57] LABS: Calcium 9.2 mg/dl (8.4-10.2); Glucose 107 mg/dl (74-100)
== END 2024-01-12 23:59 | disposition home or self-care (01) ==
LOC: LAB.DROPOF 19:15
PROVIDERS: PCP Nurse Practitioner; Visit Provider Nurse Practitioner
DX: R73.09 Other abnormal glucose (principal)
CPT/HCPCS: 80048; 83036

== ENCOUNTER 2024-02-03 11:32 | Emergency (ER) | payer MEDICAID, SELFPAY ==
--- NOTE | 2024-02-03 11:27 | PC.NURSE ---
TRAUMA ALERT CALLED
--- NOTE | 2024-02-03 11:31 | ECG_ITS ---
APPROVED REPORT Exam: Resting ECG HR:57 bpm ECG Measurements Heart Rate 57 AXES AL 157 P 62 QRSd 125 QRS 30 QT 400 T 38 QTc 394 Conclusion SINUS BRADYCARDIA MODERATE INTRAVENTRICULAR CONDUCTION DELAY [110+ ms QRS DURATION] BORDERLINE ECG Electronically signed by : NELLA MARTINEZ, 02/03/2024 15:58:53
[2024-02-03 11:44] VITALS: BP 172/100; PULSE 60; RESP 18; TEMP 36.7; O2SAT 98
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
[2024-02-03 11:55] VITALS: BMI 29.2
[2024-02-03] MEDS: MORPHINE 4MG/ML SYRINGE 4 MG IV (12:06)
[2024-02-03] MEDS: ONDANSETRON 4MG/2ML VIAL 4 MG IV (12:06)
[2024-02-03] MEDS: ACETAMINOPHEN 1,000MG/100ML VIAL 1000 MG IV (12:06)
[2024-02-03 12:10] LABS: Basophils % 0.4 % (0.1-2.0); Eosinophils # 0.1 K/mm3 (0.0-0.4); Eosinophils % 0.6 % (0.1-12.0); Hematocrit 45.6 % (42.0-52.0); Hemoglobin 14.2 g/dL (14.1-18.0); Lymphocytes # 0.6 K/mm3 (0.7-4.5); Lymphocytes % 5.3 % (10-50); Mean Corpuscular HGB Conc 31.2 g/dL (31.8-35.4); Mean Corpuscular Hemoglobin 30.3 pg (27.0-31.2); Mean Platelet Volume 8.2 fl (7.4-10.4); Monocytes # 0.4 K/mm3 (0.1-1.0); Monocytes % 4.2 % (1.7-9.3); Neutrophils # 9.3 K/mm3 (1.8-7.8); Neutrophils % 89.5 % (37.0-80.0); Platelet Count 308 K/mm3 (142-424); White Blood Count 10.4 K/mm3 (4.8-10.8)
[2024-02-03 12:12] LABS: MANUAL DIFFERENTIAL MANUAL DIFFERENTIAL (MANUAL DIFF)
[2024-02-03 12:15] LABS: INR 0.97 (0.9-1.1); Prothrombin Time 10.9 seconds (10.1-12.5)
[2024-02-03 12:30] LABS: Ethyl Alcohol < 10 mg/dl (0-10)
[2024-02-03 12:31] VITALS: BP 158/89; PULSE 60; O2SAT 97
[2024-02-03] MEDS: 0.9 % SODIUM CHLORIDE 50 ML VIAL 100 ML IV (12:31)
[2024-02-03] MEDS: SODIUM CHLORIDE 0.9% 10ML SYR (RAD ONLY) 10 ML IV (12:32)
[2024-02-03] MEDS: IOPAMIDOL-370 (76%);100ML BOTTLE 160 ML IV (12:32)
[2024-02-03] MEDS: TET/DIPHTH/PERT-ADULT 0.5ML SYRINGE 0.5 ML IM (12:33)
[2024-02-03] MEDS: BACITRACIN ZINC OINT 30GM TUBE TP (13:00)
[2024-02-03 13:01] VITALS: BP 146/80; PULSE 60; O2SAT 91
[2024-02-03 13:31] VITALS: BP 130/77; PULSE 57; O2SAT 95
[2024-02-03 13:39] LABS: Activated Partial Thrombo Time 24.2 seconds (22.8-30.6)
[2024-02-03 14:34] LABS: Albumin Level 4.6 g/dl (3.5-5.0); Chloride 108 mmol/L (98-107); Potassium 5.3 mmoL/L (3.5-5.1); Sodium 137 mmol/L (136-145)
[2024-02-03 14:37] LABS: Alanine Aminotransferase 31 U/L (12-78); Albumin/Globulin Ratio 1.2 (1.1-1.8); Alkaline Phosphatase 25 U/L (38-126); Anion Gap 14.3 mEq/L (5-15); Aspartate Amino Transferase 49 U/L (17-59); Bilirubin,Total 1.2 mg/dl (0.2-1.3); Blood Urea Nitrogen 24 mg/dl (9-20); Carbon Dioxide 20 mmol/L (22.0-30.0); Creatinine Clearance Estimated 115 mL/min (50-200); Estimated Glomerular Filt Rate 68 ml/min (>60); GFR (African American) 82 ML/MIN (>60); Total Protein,Serum 8.6 g/dl (6.3-8.2)
[2024-02-03 14:38] LABS: Calcium 9.3 mg/dl (8.4-10.2); Glucose 119 mg/dl (74-100)
[2024-02-03 14:49] VITALS: BP 130/77; PULSE 53; RESP 16; TEMP 36.6; O2SAT 97
[2024-02-03 14:51] LABS: Lymphocytes % 6 % (10-50); Monocytes % 2 % (2-9); Neutrophils % 92 % (42-76); Platelet Estimate Normal; RBC Morphology Normal; Total Cells Counted 100
== END 2024-02-03 14:53 | disposition home or self-care (01) ==
PROVIDERS: Emergency Provider Emergency Medicine; PCP Family Medicine
DX: S00.03XA Contusion of scalp, initial encounter (principal); S00.81XA Abrasion of other part of head, initial encounter; E87.5 Hyperkalemia; V00.841A Fall from standing electric scooter, initial encounter; Z23 Encounter for immunization
CPT/HCPCS: 70450; 70486; 71045; 71275; 72125; 72170; 73110; 73562; 74174; 80053; 80320; 85007; 85025; 85027; 85610; 85730; 90715; 93005; 96361; 96374; 96375; 99285; G0480; J0131; J2270; J2405; Q9967

== ENCOUNTER 2024-02-20 09:23 | Outpatient (CLI) | payer MEDICAID, SELFPAY ==
--- NOTE | 2024-02-20 09:28 | XR_ITS ---
FINAL REPORT CLINICAL HISTORY: Right Knee Pain COMPARISON: 02/03/2024 FINDINGS: 3 views of the right knee were obtained. There is no acute fracture or dislocation. There are marked advanced hypertrophic changes of osteoarthritis in the medial, lateral, and patellofemoral joints. Advanced narrowing is noted of the lateral compartment joint space. The overall appearance is similar to the prior study. There is no acute soft tissue abnormality. IMPRESSION: Stable advanced osteoarthritis. Reviewed, Interpreted and Dictated by Cheo August MD Transcribed by Karla Gomez Authenticated and . [facility]
== END 2024-02-20 23:59 | disposition home or self-care (01) ==
LOC: RAD 09:25
PROVIDERS: PCP Family Medicine; Visit Provider Orthopaedic Surgery
DX: M25.561 Pain in right knee (principal)
CPT/HCPCS: 73562

== ENCOUNTER 2024-05-28 15:54 | Outpatient (CLI) | payer MEDICAID, SELFPAY ==
[2024-05-28 18:05] LABS: Basophils # 0.1 K/mm3 (0-0.2); Eosinophils # 0.3 K/mm3 (0.0-0.4); Eosinophils % 4.7 % (0.1-12.0); Hematocrit 44.6 % (42.0-52.0); Hemoglobin 14.9 g/dL (14.1-18.0); Lymphocytes # 1.3 K/mm3 (0.7-4.5); Lymphocytes % 21.9 % (10-50); Mean Corpuscular HGB Conc 33.4 g/dL (31.8-35.4); Mean Corpuscular Hemoglobin 29.7 pg (27.0-31.2); Mean Platelet Volume 9.5 fl (7.4-10.4); Monocytes # 0.7 K/mm3 (0.1-1.0); Monocytes % 11.1 % (1.7-9.3); Neutrophils # 3.7 K/mm3 (1.8-7.8); Platelet Count 253 K/mm3 (142-424); Red Blood Count 5.01 M/mm3 (4.60-6.20); Red Cell Distribution Width 12.9 % (11.5-17.5)
[2024-05-28 18:21] LABS: Anion Gap 12.7 mEq/L (5-15); Blood Urea Nitrogen 34 mg/dl (9-20); Calcium 10.1 mg/dl (8.4-10.2); Carbon Dioxide 27 mmol/L (22.0-30.0); Chloride 106 mmol/L (98-107); Estimated Glomerular Filt Rate 47 ml/min (>60); GFR (African American) 57 ML/MIN (>60); Glucose 86 mg/dl (74-100); Potassium 4.7 mmoL/L (3.5-5.1); Sodium 141 mmol/L (136-145)
== END 2024-05-28 23:59 | disposition home or self-care (01) ==
LOC: LAB.DROPOF 05-29 13:53
PROVIDERS: PCP Family Medicine; Visit Provider Family Medicine
DX: R13.10 Dysphagia, unspecified (principal); E87.5 Hyperkalemia
CPT/HCPCS: 80048; 85025

== ENCOUNTER 2024-06-10 08:08 | Outpatient (CLI) | payer MEDICAID, SELFPAY ==
--- NOTE | 2024-06-10 08:15 | FL_ITS ---
FINAL REPORT CLINICAL HISTORY: dysphagia 1.27 min dap: 1567.14 96.06mGy FINDINGS: ESOPHAGRAM HISTORY: Epigastric pain. Dysphagia. PROCEDURE: The patient ingested barium. Effervescent crystals were also administered. Spot and overhead films were obtained. Fluoro time: 1 minute 27 seconds DAP: 1567.14 uGy.m2 Radiation exposure in Reference air Kerma: 96.06 mGy. 15 radiographs were obtained. FINDINGS: The esophagus is normal. There is a small sliding-typehiatal hernia. There is no gastroesophageal reflux. There was esophageal dysmotility. A 13 mm barium tablet passes through the esophagus and into the stomach without delay. IMPRESSION: Small sliding-type hiatal hernia. Esophageal dysmotility. Films reviewed, interpreted and dictated by Dr. August. Transcribed by Benjamin Swann PA-C. Reviewed, Interpreted and Dictated by Cheo August MD Transcribed by SASHA Mills Authenticated and [facility]
[2024-06-10] MEDS: E-Z-GASII EFFERVESCENT GRANULES;1PK 1 EACH PO (08:54)
[2024-06-10] MEDS: BARIUM SULFATE(E-Z-AC);750ML BOTTLE 750 ML PO (08:55)
[2024-06-10] MEDS: BARIUM SULFATE (E-Z-HD 340GM);135ML BOTTLE 135 ML PO (08:55)
== END 2024-06-10 23:59 | disposition home or self-care (01) ==
PROVIDERS: PCP Family Medicine; Visit Provider Family Medicine
DX: R13.10 Dysphagia, unspecified (principal)
CPT/HCPCS: 74220

== ENCOUNTER 2024-10-01 12:37 | Outpatient (CLI) | payer MEDICAID, SELFPAY ==
[2024-10-01 19:52] LABS: Alanine Aminotransferase 24 U/L (12-78); Albumin Level 4.6 g/dl (3.5-5.0); Albumin/Globulin Ratio 1.4 (1.1-1.8); Alkaline Phosphatase 60 U/L (38-126); Aspartate Amino Transferase 28 U/L (17-59); Bilirubin,Total 0.6 mg/dl (0.2-1.3); Blood Urea Nitrogen 27 mg/dl (9-20); Calcium 9.5 mg/dl (8.4-10.2); Carbon Dioxide 30 mmol/L (22.0-30.0); Chloride 104 mmol/L (98-107); Estimated Glomerular Filt Rate 56 ml/min (>60); GFR (African American) 67 ML/MIN (>60); Globulin 3.2 g/dL (1.3-3.2); Glucose 91 mg/dl (74-100); Sodium 137 mmol/L (136-145); Total Protein,Serum 7.8 g/dl (6.3-8.2)
[2024-10-01 20:07] LABS: Anion Gap 7.8 mEq/L (5-15); Potassium 4.8 mmoL/L (3.5-5.1)
== END 2024-10-01 23:59 | disposition home or self-care (01) ==
LOC: LAB.DROPOF 10-03 12:38
PROVIDERS: PCP Family Medicine; Visit Provider Family Medicine
DX: N28.9 Disorder of kidney and ureter, unspecified (principal)
CPT/HCPCS: 80053

== ENCOUNTER 2025-01-22 11:05 | Day surgery (SDC) | payer MEDICAID, SELFPAY ==
--- NOTE | 2025-01-21 13:47 | EXP.HP ---
History of Present Illness *Admission Date: 01/22/25 *History of present illness: Mr. Huynh is a 64-year-old gentleman who is here for diagnostic colonoscopy. He has had some infrequent rectal bleeding and does get some right lower quadrant abdominal pain. The examination is deemed medically necessary for diagnostic colonoscopy. The patient has been seen, interviewed and examined prior to the procedure by both myself and the anesthesia provider. [facility] Disclaimer: The information contained in this section may have been updated after the patient was seen, as this information can be updated by other users. Medical History Insomnia Rectal hemorrhage Hyperkalemia Dysphagia Renal insufficiency, mild IFG (impaired fasting glucose) Elevated random blood glucose level Tremor Unexplained falls Stress Biceps tendonitis on left Subperiosteal hematoma Localized swelling of right lower leg Lumbar degenerative disc disease Thoracic degenerative disc disease RUQ abdominal pain Arthropathy of right knee Tremor of both hands Primary hypertension History of back pain Arthritis Edema Kidney stone Pneumonia Sinus headache Allergies Anxiety Left inguinal hernia Abdominal pain Hyperlipidemia Hypertension Surgical History Hx of total knee arthroplasty History of hernia repair History of knee surgery Hx of colonoscopy Family History Father Family history of heart attack Sister Family history of cancer Social History Smoking Status: Never smoker years smoked: 30 smoking status stop date: 1979 second hand exposure: No alcohol intake: never substance use type: denies use current occupational status: unemployed Travel in the last 8 weeks?: None household members: significant other and friend(s) housing: house current occupation: [employer] current occupational exposures/hazards: Yes caffeine: Yes Have you lived/traveled outside US in past 30 days?: No Contact w/someone who lives/traveled outside US past 30 days?: No Exposure to someone with infectious disease in past 14 days?: No Do you have a fever (greater than 100.4 F or 38 C)?: No Have you tested positive for COVID-19?: No Exposed to someone with COVID-19 in past 14 days?: No Do you have a sore throat?: No Do you have a cough?: No Do you have any weakness?: No Do you have any diarrhea?: No Are you experiencing any unusual bleeding?: No Do you have any muscle aches/pain?: No Do you have any abdominal pain?: No Are you experiencing loss of taste or smell?: No Other Medical History Have you received the Flu Vaccine for this season: Yes Have you received the Pneumonia Vaccine: No Review of Systems Review of Systems Review of systems (narrative): Negative *Cardiovascular Comments: Negative *Gastrointestinal Comments: Negative *Genitourinary Comments: Negative *Musculoskeletal Comments: Negative *Neurologic Comments: Negative Meds Home Medications and Allergies Home Medications ?Medication ?Instructions ?Recorded ?Confirmed ?Type metoprolol succinate 50 mg See Rx Instructions .Route 08/28/24 01/22/25 Rx tablet,extended release 24 hr .COMPLEX #30 tabs cetirizine 10 mg tablet See Rx Instructions .Route 09/24/24 01/22/25 Rx .COMPLEX #30 tabs simvastatin 40 mg tablet See Rx Instructions .Route 09/24/24 01/22/25 Rx .COMPLEX #90 tabs sertraline 100 mg tablet See Rx Instructions .Route 11/15/24 01/22/25 Rx .COMPLEX #90 tabs clonazepam 0.5 mg tablet (Klonopin) 0.5 mg PO .TID prn #90 tabs 12/10/24 01/22/25 Rx sodium,potassium,mag sulfates 17.5 See Rx Instructions PO .COMPLEX 01/10/25 01/10/25 Rx gram-3.13 gram-1.6 gram oral soln #354 mL (Suprep Bowel Prep Kit) omeprazole 40 mg capsule,delayed 40 mg PO DAILY #90 caps 01/13/25 01/22/25 Rx release benazepril 20 See Rx Instructions .Route .COMPLEX 01/22/25 01/22/25 History mg-hydrochlorothiazide 12.5 mg tablet (Lotensin HCT) quetiapine 50 mg tablet (Seroquel) 50 mg PO DAILY 01/22/25 01/22/25 History New Prescriptions to Start Prescriptions: Allergies Allergy/AdvReac Type Severity Reaction Status Date / Time No Known Allergies Allergy Verified 01/22/25 11:25 Exam *Routine HEENT Exam Head: Present normocephalic Eye: Present EOMI and PERRL ENT: Present mucous membranes moist *Routine Neck Exam Neck: Present supple *Routine Respiratory Exam Respiratory: Present CTA bilaterally *Routine Cardiovascular Exam Cardiovascular: Present RRR *Routine Abdominal Exam Abdominal: Present soft and normoactive bowel sounds; Absent tenderness *Routine Rectal Exam Rectal:: deferred *Routine Genitalia Exam Genitalia:: deferred *Routine Extremities Exam Extremities: Absent cyanosis, clubbing or edema *Routine Skin Exam Skin: Present warm; Absent rash *Routine Neurological Exam Neurological: Present alert and oriented X3 Assessment and Plan *Assessment and plan (1) Rectal hemorrhage: Status: Acute Category: Medical Code(s): K62.5 - Hemorrhage of anus and rectum (2) Right sided abdominal pain: Status: Acute Category: Medical Code(s): R10.9 - Unspecified abdominal pain Plan A/P: 1. Rectal bleeding with right sided abdominal pain is the preprocedural diagnosis. The patient will be anesthetized/sedated using MAC sedation. The patient has been seen and examined. Cardiac and lung assessment prior to the examination is stable. Proceed with planned diagnostic colonoscopy.
[2025-01-22 11:33] VITALS: BP 126/88; PULSE 60; RESP 18; TEMP 36.6; O2SAT 96
[2025-01-22] MEDS: LACTATED RINGERS 1000ML 1,000 ML 50 ML IV (11:46)
--- NOTE | 2025-01-22 12:24 | EXP.ANES.CKL ---
[facility] Disclaimer: The information contained in this section may have been updated after the patient was seen, as this information can be updated by other users. Medical History Insomnia Rectal hemorrhage Hyperkalemia Dysphagia Renal insufficiency, mild IFG (impaired fasting glucose) Elevated random blood glucose level Tremor Unexplained falls Stress Biceps tendonitis on left Subperiosteal hematoma Localized swelling of right lower leg Lumbar degenerative disc disease Thoracic degenerative disc disease RUQ abdominal pain Arthropathy of right knee Tremor of both hands Primary hypertension History of back pain Arthritis Edema Kidney stone Pneumonia Sinus headache Allergies Anxiety Left inguinal hernia Abdominal pain Hyperlipidemia Hypertension Surgical History Hx of total knee arthroplasty History of hernia repair History of knee surgery Hx of colonoscopy Family History Father Family history of heart attack Sister Family history of cancer Social History Smoking Status: Never smoker years smoked: 30 smoking status stop date: 1979 second hand exposure: No alcohol intake: never substance use type: denies use current occupational status: unemployed Travel in the last 8 weeks?: None household members: significant other and friend(s) housing: house current occupation: [employer] current occupational exposures/hazards: Yes caffeine: Yes Have you lived/traveled outside US in past 30 days?: No Contact w/someone who lives/traveled outside US past 30 days?: No Exposure to someone with infectious disease in past 14 days?: No Do you have a fever (greater than 100.4 F or 38 C)?: No Have you tested positive for COVID-19?: No Exposed to someone with COVID-19 in past 14 days?: No Do you have a sore throat?: No Do you have a cough?: No Do you have any weakness?: No Do you have any diarrhea?: No Are you experiencing any unusual bleeding?: No Do you have any muscle aches/pain?: No Do you have any abdominal pain?: No Are you experiencing loss of taste or smell?: No [facility] Anesthesia Checklist Patient Identification Patient Identification: Arm Band and Verbal (Name & ) Structural Data Admitted From: Home Planned Operative Procedure/s: Colonscopy Consent for Planned Operative Procedure(s) Verified: Yes Verified Documents: Surgical Consent and History and Physical NPO Status Verified Time NPO: 00:00 Additional verifications Anesthesia Reactions: No Hx Blood Transfusions: No Blood Transfusion Reaction: No Previous Colonoscopy: Yes Airway Assessment Mallampati Score:: Class II Dentition: Poor Dentition Neurological Assessment Level of Consciousness: Awake, Alert and Appropriate Hx Seizures: No Numbness or tingling in extremities: No Anesthesia Plan Anesthesia Risk discussed: Yes Anesthesia Plan: Verified ASA Class: III Anesthesia Type: MAC
--- NOTE | 2025-01-22 12:27 | HMH.PROCNOTE ---
[facility] Procedure Note Date: 01/22/25 Time: 12:42 Procedure Note:: Colonoscopy Procedure Report: Colonoscopy with cold snare polypectomy Endoscopist: Zhen Garcia II, MD Referring physician: Barrie Samuels MD Date of Procedure: January 22, 2025 Equipment: Olympus [id number] adult colonoscope Sedation: MAC sedation Indication: Mr. Huynh is a 64-year-old gentleman who is here for diagnostic colonoscopy. The patient does get some bright red rectal bleeding especially if he strains. He also has had some intermittent right lower quadrant abdominal pain. He reports no gassiness but does get some bloating. He has a bowel movement every other day and states that he is regular. He has had no weight loss or family history of colon cancer. His last colonoscopy was more than 10 years ago. He reports no hemorrhoids or hemorrhoidal prolapse. Procedure: Prior to the procedure, a history and physical exam was performed, and patient's medications and allergies were reviewed. The risks, benefits and alternatives of the sedation and procedure were discussed with the patient. All questions were answered and informed consent was obtained. The patient was brought to the procedure room. Patient identification and proposed procedure were verified by the physician and the nurse. The patient was placed in a left lateral decubitus position and the scope was passed under direct vision. Throughout the procedure, the patient's blood pressure, pulse, and oxygen saturations were monitored continuously. The colonoscopy was accomplished without difficulty. The patient tolerated the procedure well. Findings: On digital rectal examination there was normal rectal tone. There were no external hemorrhoids. The prostate was 2+, smooth, soft, symmetric without nodules. The colonoscope was introduced through the anal canal to the rectum and advanced to the cecum. The ileocecal valve and appendiceal orifice were identified. The scope was advanced a short distance into the ileum which appeared grossly normal. The scope was then withdrawn into the colon. There was a 6 to 7 mm polyp in the ascending colon removed via cold snare polypectomy. The the remaining cecum, ascending and transverse colon and mucosa were grossly normal. There were scattered diverticuli throughout the descending and sigmoid colon (LEFT colon). The rectum itself was normal. Upon retroflexion within the rectum there were grade 2 internal hemorrhoids. The preparation was fair to poor throughout with a lot of liquid brown stool and some semisolid residue with Dunmore Preparation Score of 6 out of 9. The cecal time was 12 minutes. Impression: 1. Ascending colon polyp (6 to 7 mm) 2. Left-sided diverticulosis 3. Grade 2 internal hemorrhoids 4. Fair to poor bowel preparation Plan: I will follow-up the polyp histology and discuss the findings with the patient and family. I would encourage psyllium bulking fiber supplementation on a maintenance basis.
[2025-01-22 12:46] VITALS: BP 90/49; PULSE 51; RESP 16; TEMP 36.3; O2SAT 92
[2025-01-22 12:56] VITALS: BP 97/55; PULSE 50; RESP 16; O2SAT 93
[2025-01-22 13:06] VITALS: BP 98/67; PULSE 54; RESP 16; O2SAT 95
[2025-01-22 13:16] VITALS: BP 128/73; PULSE 59; RESP 16; O2SAT 96
== END 2025-01-22 13:16 | disposition home or self-care (01) ==
PROVIDERS: PCP Family Medicine; Visit Provider Internal Medicine Gastroenterology
PROC: 0DJD8ZZ Inspection of Lower Intestinal Tract, Via Natural or Artificial Opening Endoscopic (ICD-10-PCS; CPT 45378; principal; 2025-01-22 13:00)
DX: D12.2 Benign neoplasm of ascending colon (principal); F41.9 Anxiety disorder, unspecified; E78.5 Hyperlipidemia, unspecified; I10 Essential (primary) hypertension; R73.01 Impaired fasting glucose; Z79.899 Other long term (current) drug therapy
CPT/HCPCS: 45385; 88305; J2003; J2704; J7120

== ENCOUNTER 2025-02-04 16:25 | Outpatient (CLI) | payer MEDICAID, SELFPAY ==
[2025-02-04 20:22] LABS: Chloride 105 mmol/L (98-107); Potassium 4.3 mmoL/L (3.5-5.1); Sodium 142 mmol/L (136-145)
[2025-02-04 20:25] LABS: Blood Urea Nitrogen 22 mg/dl (9-20); Creatinine,Serum 1.10 mg/dl (0.66-1.25); Estimated Glomerular Filt Rate 67 ml/min (>60); GFR (African American) 82 ML/MIN (>60)
[2025-02-04 20:26] LABS: Anion Gap 16.3 mEq/L (5-15); Calcium 9.6 mg/dl (8.4-10.2); Carbon Dioxide 25 mmol/L (22.0-30.0); Glucose 101 mg/dl (74-100)
--- OUTSIDE RECORDS SUMMARY | 2025-02-05 10:36 | XMS_ITS | Clinical Summary ---
Author Organization [facility] Address [address] [place] [id number] Phone Care Team Providers Care Flume Ride Operator Name Role Phone Unavailable Unavailable Conditions or Problems No information available. Medications No information available. Medications Administered No information available. Allergies, Adverse Reactions, Alerts No information available. Results No information available. Plan of Care No information available. Procedures No information available. Vital Signs No information available. Immunizations No information available. Advance Directives No information available.
--- OUTSIDE RECORDS SUMMARY | 2025-02-05 10:38 | XMS_ITS | Clinical Summary ---
Author Organization Healthcare Address [address] [place] [address] Care Team Providers Care Rivet Sticker Name Role Phone Marc Samuels MD Primary Care Provider [phone] Allergies No known active allergies Medications metoprolol succinate XL (Toprol-XL) 50 MG 24 hr tablet Take 1 tablet (50 mg) by mouth 1 (one) time each day. Active benazepril-hydr oCHLOROthiazide (Lotensin HCT) 20-12.5 MG tablet Take 1 tablet by mouth 1 (one) time each day. Active simvastatin (Zocor) 40 MG tablet Take 1 tablet (40 mg) by mouth every night. Active clonazePAM (KlonoPIN) 0.5 MG tablet Take 1 tablet (0.5 mg) by mouth 3 (three) times a day. Active fluticasone (Flonase) 50 MCG/ACT nasal spray PLACE 1 SPRAY INTO EACH NOSTRIL ONCE DAILY 4 Active hydroCHLOROthia zide 12.5 MG PO tablet TAKE 1 TABLET BY MOUTH ONCE DAILY HIGH BLOOD PRESSURE 5 Active omeprazole (PriLOSEC) [address] capsule Take 1 capsule (20 mg) by mouth 2 (two) times a day. 4 Active tamsulosin (Flomax) 0.4 MG 24 hr capsule Take 1 capsule (0.4 mg) by mouth 1 (one) time each day. 4 Active cetirizine (ZyrTEC) 10 MG tablet Take 1 tablet (10 mg) by mouth 1 (one) time each day. 4 Active oxyCODONE (Roxicodone) 5 MG immediate release tablet Take 1 tablet (5 mg) by mouth every 6 (six) hours if needed for severe pain for up to 50 doses. 50 tablet Active Additional Information Patient not taking.Reported on 06/27/2024 sertraline (Zoloft) 100 MG tablet Take 1 tablet (100 mg) by mouth 1 (one) time each day. Active gabapentin (Neurontin) 100 MG capsule Take 1 capsule (100 mg) by mouth 3 (three) times a day. If this medication makes you drowsy you may take it only at bedtime 30 capsule Active Additional Information Patient not taking.Reported on 06/27/2024 acetaminophen (Tylenol Extra Strength) 500 MG tablet Take 2 tablets (1,000 mg) by mouth every 8 (eight) hours. 100 tablet Active traMADol (Ultram) 50 MG tablet Take 1 or 2 tablets every 4-6 hours as needed for moderate pain 56 tablet Active Additional Information Patient not taking.Reported on 06/27/2024 naloxone (Narcan) 4 mg/0.1 mL nasal spray 1. Give 1 spray in nostril for no/slow breathing or cannot wake after opioid use 2. Call 911 3. Repeat in other nostril if symptoms continue 1 each Active Active Problems Problem Noted Date Diagnosed Date Arthritis of right knee 06/12/2024 Osteoarthritis of right knee 03/12/2024 Family History Medical History Relation Name Comments Anesthesia problems Neg Hx Malig Hyperthermia Neg Hx Social History Tobacco Use Types Packs/Day Years Used Date Smoking Tobacco: Former Cigarettes 2 21 S tarted: 1974 Smokeless Tobacco: Never Tobacco Cessation:Counseling Given: Not Answered Alcohol Use Standard Drinks/Week Comments Not Currently 0 (1 standard drink = 0.6 oz pur e alcohol) PHQ-2 Answer Date Recorded Patient Health Questionnaire-2 Score 0 03/12/2024 Sex and Gender Information Value Date Recorded Sex Assigned at Not on file Legal Sex Male 11:37 AM EDT Gender Identity Not on file Sexual Orientation Not on file Last Filed Vital Signs Vital Sign Reading Time Taken Comments Blood Pressure 146/82 06/27/2024 10:59 AM EST Pulse 86 06/27/2024 10:59 AM EST Temperature 36.9 C (98.4 F) 06/13/2024 7:59 AM EST Respiratory Rate 16 06/13/2024 8:51 AM EST Oxygen Saturation 98% 06/27/2024 10:59 AM EST Inhaled Oxygen Concentration - - Weight 124 kg (273 lb 5.9 oz) 06/27/2024 10:59 A M EST Height 200.7 cm (6' 7 ) 06/27/2024 10:59 AM EST Body Mass Index 30.8 06/27/2024 10:59 AM EST Plan of Treatment Health Maintenance Due Date Last Done Comments [facility]-HIV Screening 1960 [facility]-Hepatitis C Screening 1960 [facility]-/Child/Adol SDOH Screenings 1960 [facility]- SDOH Screenings 1978 [facility]-Adult SDOH Screenings 1978 [facility]-DTaP,Tdap,and Td Vaccines (1 - Tdap) 1979 CT Colonography 2005 Colonoscopy 2005 FIT-DNA 2005 FIT 2005 FOBT 2005 Sigmoidoscopy 2005 [facility]-Colorectal Cancer Screening 2005 [facility]-Zoster Vaccines (1 of 2) 2010 [facility]-RSV Vaccine: 60+ Years or (1 - Risk 60-74 years 1-dose series) 2020 [facility]-JLCAB-15 Vaccine (2 - season) 2025 10/03/2020 [facility]-Influenza Vaccine (#1) 01/20/202503/23, 04/12/2022, 03/08/2021, Additional history exists [facility]-Depression Screening 03/12/2025 03/12/2024 [facility]-Diabetes: Hemoglobin A1C 06/07/2025 06/07/2024 [facility]-Pneumococcal Vaccine: 50+ Years Completed 03/23/2023, 07/17/2020 [facility]-Obesity Intervention Completed 025, 03/12/2024, 03/12/2024 HPV Vaccines Aged Out No longer eligi ble based on patient's age to complete this topic [facility]-HIB Vaccines Aged Out No longer e ligible based on patient's age to complete this topic [facility]-Hepatitis A Vaccines Aged Out No longer eligible based on patient's age to complete this topic [facility]-IPV Vaccines Aged Out No longer e ligible based on patient's age to complete this topic [facility]-Rotavirus Vaccines Aged Out No lo nger eligible based on patient's age to complete this topic Goals Goal Patient Goal Type Associated Problems Recent Progress Patient-Stated? Author Autogenera johnny Goal Care Plan Autogenerated Problem No Abelardo Sage MD Medical Devices Implanted Type Area Junior Web Developer Device Identifier Shelf Expiration Date Model / Serial / Lot Cement Palacos Mv - [id number] Implanted:Qty: 1 on 06/12/2024 by Abelardo Sage MD at [facility] Right: Knee [employer]-[id number] 05/21/2028 [id number] / / [id number] Cement Palacos Mv - [id number] Implanted:Qty: 2 on 06/12/2024 by Abelardo Sage MD at [facility] Right: Knee [employer]-[id number] 05/21/2028 [id number] / / [id number] Patella Porous Oval 41mm - [id number] Implanted:Qty: 1 on 06/12/2024 by Abelardo Sage MD at [facility] Right: Knee [employer]hew [employer]-[id number] 12/07/2029 [id number] / / [id number] Chg Tibial Journeyia [employer] Beauty Counselor R - [id number] Implanted:Qty: 1 on 06/12/2024 by Abelardo Sage MD at [facility] Right: Knee [employer]-[id number] 03/20/2031 [id number] / / [id number] Jrny Ii Bcs Femoral Oxin Rt Sz - [id number] Implanted:Qty: 1 on 06/12/2024 by Abelardo Sage MD at [facility] Right: Knee [employer]-[id number] 12/22/2033 [id number] / / [id number] [place] All Suture Qfix 2.8mm - [id number] Implanted:Qty: 2 on 06/12/2024 by Abelardo Sage MD at [facility] Right: Knee [employer] Nephew Endoscopy (Acufex)-[id number] 01/07/2027 [id number] / / [id number] Knee Journey Ii Bcs Cnstrd Art Isrt Rt 7-8 13m - [id number] Implanted:Qty: 1 on 06/12/2024 by Abelardo Sage MD at [facility] Right: Knee Jackson & Nephnazanin [employer]-[id number] 05/30/2032 [id number] / / [id number] Procedures Procedure Name Priority Date/Time Associated Diagnosis Comments HEMOGLOBIN A1C Routine 06/07/2024 9:47 AM EST Osteoarthritis of right knee, unspecified osteoarthritis type Chronic pain of right knee from Last 3 Months or Most Recently Relevant to Health Maintenance Results * (ABNORMAL) Hemoglobin A1c (06/07/2024 9:47 AM EST) Hemoglobin A1c 5.9(H) <5.7 % 06/07/2024 2:[address] [facility] Blood Venous blood specimen / Unknown Venipuncture / Unknown 06/07/2024 9:47 AM EST 06/07/2024 9:[address] [facility] - 06/07/2024 2:09 PM EST HA1C Interpretive Data: Diagnosis of Diabetes: Diabetic > or = 6.5% Pre-diabetic 5.7 to 6.4% Non-diabetic < or = 5.6% Glycemic Targets for Type I and Type II Diabetics: Non- Adults <7.0% Adults <6.0% Children and Adolescents <7.5% Source: [place] [employer]. Standards of medical care in diabetes,2017. Diabetes Care.2017:40 (suppl 1):S1-S135. HbA1c assay performed by an ion-exchange chromatography method that is certified traceable to the DCCT. us Abelardo Sage MD LAB BLOOD ORDERABLES Final R esult [facility] [address] [place] [address] from Last 3 Months or Most Recently Relevant to Health Maintenance Additional Health Concerns Active Problems Noted Date Diagnosed Date Autogenerated Problem 08/22/[address] [place] [address] [place] [address] MEDICAID Advance Directives * Full Code (Latest Code Status on File) Date Activated Date Inactivated Comments 06/12/2024 9:29 AM 06/13/2024 6:42 PM Question Answer Comments Patient has decision-making capacity? Yes Care Teams Rivet Sticker Relationship Specialty Start Date End Date Marc Samuels MD [address] [place] [address] PCP - General 02/26/24
--- OUTSIDE RECORDS SUMMARY | 2025-02-05 10:38 | XMS_ITS | Encounter Summary ---
Author Organization Healthcare Address [address] [place] [address] Care Team Providers Care Social Insurance Adviser Name Role Phone Marc Samuels MD Primary Care Provider [phone] Reason for Referral * Consultation (Routine) - Closed Specialty Diagnoses / Procedures Referred By Rochelle sullivan Referred To Contact Orthopaedic Surgery Diagnoses Osteoarthritis of right knee, unspecified osteoarthritis type Bart Jaramillo DO [address] [place] [address] [place] [address] Phone: tel: fax: Abelardo Sage MD [address] [facility] [address] [place] [address] Phone: tel: fax: Referral ID Status Reason Start Date Expiration Date Visits Re quested Visits Authorized [id number] Closed 02/20/2024 08/21/2025 1 1 Encounter Details Date Type Department Care Team (Latest Contact Info) Description 02/20/2024 Community Orders [facility] [address] [place] [address] Bart Jaramillo DO [address] [place] [id number] Osteoarthritis of right knee, unspecified osteoarthritis type (Primary Dx) Social History Tobacco Use Types Packs/Day Years Used Date Smoking Tobacco: Never Assessed Sex and Gender Information Value Date Recorded Sex Assigned at Not on file Legal Sex Male 11:37 AM EDT Gender Identity Not on file Sexual Orientation Not on file documented as of this encounter Plan of Treatment Scheduled Referrals Name Type Priority Associated Diagnoses Orde r Schedule Ambulatory referral to Orthopaedics Joint Reconstruction Outpatient Referral Routine Osteoarthritis of right knee, unspecified osteoarthritis type Expected: 02/20/2024 (Approximate), Expires: 02/19/2025 documented as of this encounter Visit Diagnoses Diagnosis Osteoarthritis of right knee, unspecified osteoarthritis type- Primary documented in this encounter Care Teams Social Insurance Adviser Relationship Specialty Start Date End Date Marc Samuels MD [address] [place] [address] PCP - General 02/26/24 documented as of this encounter
--- OUTSIDE RECORDS SUMMARY | 2025-02-05 10:38 | XMS_ITS | Clinical Summary ---
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 Name Role Phone Unavailable Primary Care Provider Unavailabl e Allergies No known active allergies Medications No known medications Medical History Medical History Date Comments Hypertension High cholesterol Social History Tobacco Use Types Packs/Day Years Used Date Smoking Tobacco: Former Smokeless Tobacco: Never Alcohol Use Standard Drinks/Week Comments Not Currently 0 (1 standard drink = 0.6 oz pur e alcohol) Sex and Gender Information Value Date Recorded Sex Assigned at Not on file Legal Sex Male 8:53 PM EDT Gender Identity Not on file Sexual Orientation Not on file Obstetrics History Last Filed Vital Signs Vital Sign Reading Time Taken Comments Blood Pressure 149/99 06/14/2020 4:26 PM EST Pulse 86 06/14/2020 4:26 PM EST Temperature 37.3 C (99.2 F) 06/14/2020 1:04 PM EST Respiratory Rate 22 06/14/2020 4:26 PM EST Oxygen Saturation 93% 06/14/2020 4:26 PM EST Inhaled Oxygen Concentration - - Weight 110.2 kg (243 lb) 06/14/2020 1:04 PM EST Height 200.7 cm (6' 7 ) 06/14/2020 1:04 PM EST Body Mass Index 27.38 06/14/2020 1:04 PM EST Plan of Treatment Health Maintenance Due Date Last Done Comments Wellness Exam Medicare 1963 Hepatitis C Screening 1978 DTaP/TDaP/Td (1 - Tdap) 1979 Cologuard 2005 Colon Cancer Screening 2005 Colonoscopy 2005 FIT 2005 Sigmoidoscopy 2005 Virtual Colonography 2005 Pneumococcal Vaccine 50+ (1 of 1 - PCV) 2010 Zoster (1 of 2) 2010 COVID-19 Vaccine (1 - 2023-2 5 season) 2025 Influenza Vaccine (#1) 2025 Hepatitis B Vaccine Aged Out No longe r eligible based on patient's age to complete this topic Meningococcal B Vaccine Aged Out No l onger eligible based on patient's age to complete this topic Insurance [place]ICARE [place] B [place] A [place] B
== END 2025-02-04 23:59 ==
LOC: LAB.DROPOF 02-05 10:34
PROVIDERS: PCP Family Medicine; Visit Provider Family Medicine
DX: N28.9 Disorder of kidney and ureter, unspecified (principal); M25.561 Pain in right knee
CPT/HCPCS: 80048

== ENCOUNTER 2025-02-24 08:52 | Outpatient (RCR) | payer MEDICARE, MEDICAID, SELFPAY ==
--- NOTE | 2025-02-24 09:50 | HMH.PTOPEV ---
PT Evaluation Rehab PT Outpatient Evaluation Start: 02/24/25 08:56 Freq: Status: Active Protocol: Document 02/24/25 08:56 [email or web address] (Rec: 02/24/25 09:50 RUPESH [email or web address]) E-signed By Bobbi Caicedo, PT Outpatient Therapy Subjective History Subjective History Pt is a 64 y/o male who reports chronic R knee pain. Per records pt had a R knee xray on 02/20/24 with findings of There are marked advanced hypertrophic changes of osteoarthritis in the medial, lateral, and patellofemoral joints. Advanced narrowing is noted of the lateral compartment joint space. Pt states he underwent R TKA last Winter. Pt states he had HHPT and outpatient PT after the surgery with noted improvement. Pt reports he continues have intermittent R medial and lateral knee pain described as burning. Pt reports pain is aggravated by laying flat, weather changes and prolonged walking. Pt states his right lower leg swells when it rains as well. Pt states he does use a SPC or walker if he is having a lot of pain. Pt denies recent falls. Pt denies catching, locking or buckling sensation of the right knee. Pt reports the knee feels very stiff in the morning times as well. Medical History: Hypertension New diagnosis of No cancer in past 12 months? Chief Complaint Pain,Stiff,Swelling Symptom Type Burning Symptoms Relieved By Rest/Positioning,Heat Current Functional Housework,Squatting,Recreation Activity,Walking Limitations Symptom Description Intermittent Level of pain today 0 (0-10) Pain scale - at its 0 best (0-10) Pain scale - at its 10 worst (0-10) Hip/Knee Eval Gait Observation General Gait Pattern Antalgic Gait Observation Assistive Device Assistive Devices None / NA Palpation Tenderness right Knee Palpation Tenderness Finding Knee Palpation 1/4 TTP of medial & lateral tibiofemoral jt line, Overall Comment hamstring mm & tt MMT Hip Flexion Strength 4+ Good+ Grade Hip Abduction 4 Good Strength Grade Hip Adduction 4 Good Strength Grade Hip Extension 4 Good Strength Grade Knee Extension 4 Good Strength Grade Knee Flexion 4 Good Strength Grade ROM Knee Extension 8 Active Range of Motion (degrees) Knee Extension 0 Passive Range of Motion (degrees) Knee Flexion Active 125 Range of Motion ( degrees) Effusion joint effusion knee right exam standard Mid - Patellar 44 Circumerential Measure (cm) Lower Extremity Functional Index Activities Today, do you or would you have any difficulty at all with: a.Any of your usual A little bit of difficulty work, housework or school activities b. Your usual A little bit of difficulty hobbies, recreational or sporting activities c. Getting into or Moderate difficulty out of the bath d. Walking between A little bit of difficulty rooms e. Putting on your A little bit of difficulty shoes or socks f. Squatting Moderate difficulty g. Lifting an object A little bit of difficulty , like a bag of groceries from the floor h. Performing light No difficulty activities around your home i. Performing heavy A little bit of difficulty activities around your home j. Getting into or A little bit of difficulty out of a car k. Walking 2 blocks A little bit of difficulty l. Walking a mile A little bit of difficulty m. Going up or down A little bit of difficulty 10 stairs (about 1 flight of stairs) n. Standing for 1 A little bit of difficulty hour o. Sitting for 1 No difficulty hour p. Running on even Quite a bit of difficulty ground q. Running on uneven Quite a bit of difficulty ground r. Making sharp Quite a bit of difficulty turns while running fast s. Hopping Quite a bit of difficulty t. Rolling over in A little bit of difficulty bed LEFI Score Lower Extremity 52 Functional Index Score Outpatient Therapy Assessment Impairments Problems/ Palpation Tenderness,Impaired Range of Motion,Impaired Impairmments Strength,Impaired Gait Pattern,Impaired Walking, Impaired Incline Stepping,Impaired Stepping on Uneven Surface,Impaired Squatting,Subjective C/O Pain,Impaired Self Care/Self Management Prognosis Rehab Potential Good Clinical Impression Consistent with Yes Diagnosis PT Patient Goals PT Patient Goals PT Short Term 3 weeks: Patient Goals 1. Verbalize compliance with HEP to assist with progress. 2. Improve R knee extension AROM to assist with mobility and gait. 3. Improve pain at worst to 8/10 on VAS to improve overall QOL. PT It Security Engineer Patient 6 weeks: Goals 1. Demonstrate non-antalgic gait mechanics to decrease fall risk. 2. Improve RLE MMT to 4+-5/5 grossly to assist with function. 3. Improve pain at worst to 6/10 to improve overall QOL . 4. Improve LEFS score to 62/80 to improve overall QOL/ function. Outpatient Therapy Plan of Care Treatment Plan May Include Therapeutic Exercise Yes Including Home Exercise Program Manual Therapy Yes Techniques Neuromuscular Re- Yes education Therapeutic Yes Activities to Return to Previous Functional/Work Level Gait Training Yes ADL/Self Care Yes Education Dry Needling Yes Thermal Modalities Yes Electrical Yes Stimulation Ultrasound/ Yes Phonophoresis Iontophoresis Yes Orthotics/Bracing/ Yes Splinting Vasopneumatic Yes Compression Pump Massage Yes Manual Lymphatic Yes Drainage Group Therapy for Yes Medicare Eval/Re-Eval Yes Aquatic Therapy Yes Frequency Times per week 2 Duration Number of Weeks 4-6 Addendums This patient is a No candidate for social or vocational rehab ? Patient/Guardian Yes verbally acknowledges understanding of treatment program and consents to further treatment? Patient/Guardian Yes verbally acknowledges understanding of diagnosis, prognosis and goals for treatment? Eval Complexity PT Charges 80611 - Low Complexity Shoulder/Elbow Eval Shoulder Objective Measurements Elbow Objective Measurements PHYSICIAN CERTIFICATION: I certify the specified therapy services for Jaxson Huynh are required, authorized, and reviewed every 30 days.
== END 2025-02-24 23:59 | disposition home or self-care (01) ==
LOC: PT 08:52
PROVIDERS: Visit Provider Family Medicine
DX: M25.561 Pain in right knee (principal); G89.29 Other chronic pain
CPT/HCPCS: 97161

== ENCOUNTER 2025-04-29 12:39 | Outpatient (CLI) | payer MEDICARE, MEDICAID, SELFPAY ==
[2025-04-29 13:02] LABS: Hematocrit 45.4 % (42.0-52.0); Hemoglobin 15.5 g/dL (14.1-18.0); Immature Granulocytes % 0.2 %; Mean Corpuscular HGB Conc 34.1 g/dL (31.8-35.4); Mean Corpuscular Hemoglobin 30.2 pg (27.0-31.2); Mean Corpuscular Volume 88.3 fl (80-94); Nucleated Red Blood Cells % 0 %; Platelet Count 252 K/mm3 (142-424); Red Blood Count 5.14 M/mm3 (4.60-6.20); Red Cell Distribution Width-SD 41.6 fL; White Blood Count 5.3 K/mm3 (4.8-10.8)
--- NOTE | 2025-04-29 13:28 | XR_ITS ---
FINAL REPORT CLINICAL HISTORY: LUQ, epigastric, left chest wall pain FINDINGS: 2 views of the abdomen were obtained. There is a nonspecific, nonobstructive bowel gas pattern. Gas and stool seen throughout the colon. No abnormal calcifications are identified. IMPRESSION: Nonspecific, nonobstructive bowel gas pattern. Reviewed, Interpreted and Dictated by Cheo August MD Transcribed by Carina Awan Authenticated and [facility]
--- NOTE | 2025-04-29 13:28 | XR_ITS ---
FINAL REPORT CLINICAL HISTORY: LUQ, epigastric, left chest wall pain FINDINGS: 2 views of the chest were obtained . The heart is normal in size. The mediastinum is within normal limits. Atelectasis is seen at the right lung base. There is no pneumothorax. Osseous structures are unremarkable. IMPRESSION: Right basilar atelectasis. Reviewed, Interpreted and Dictated by Cheo August MD Transcribed by Carina Awan Authenticated and [facility]
[2025-04-29 13:36] LABS: Alanine Aminotransferase 25 U/L (12-78); Albumin Level 4.9 g/dl (3.5-5.0); Albumin/Globulin Ratio 1.3 (1.1-1.8); Alkaline Phosphatase 43 U/L (38-126); Amylase 54 U/L (30-110); Anion Gap 17.7 mEq/L (5-15); Aspartate Amino Transferase 30 U/L (17-59); Bilirubin,Total 0.8 mg/dl (0.2-1.3); Blood Urea Nitrogen 23 mg/dl (9-20); Calcium 10.2 mg/dl (8.4-10.2); Carbon Dioxide 26 mmol/L (22.0-30.0); Chloride 103 mmol/L (98-107); Creatinine,Serum 1.40 mg/dl (0.66-1.25); Estimated Glomerular Filt Rate 51 ml/min (>60); GFR (African American) 62 ML/MIN (>60); Globulin 3.7 g/dL (1.3-3.2); Glucose 93 mg/dl (74-100); Lipase 135 U/L (23-300); Potassium 4.7 mmoL/L (3.5-5.1); Sodium 142 mmol/L (136-145); Total Protein,Serum 8.6 g/dl (6.3-8.2)
== END 2025-04-29 23:59 | disposition home or self-care (01) ==
PROVIDERS: PCP Family Medicine; Visit Provider Nurse Practitioner
DX: J98.11 Atelectasis (principal); R93.3 Abnormal findings on diagnostic imaging of other parts of digestive tract; R10.12 Left upper quadrant pain; R10.13 Epigastric pain; R31.9 Hematuria, unspecified
CPT/HCPCS: 36415; 71046; 74019; 80053; 82150; 83690; 85025